=== PATIENT | male | born 1955 | race African-American/Black ===

== ENCOUNTER 2018-03-26 16:10 | Observation (INO) | payer BC ==
[2018-03-26] MEDS ORDERED: HEPARIN SODIUM,PORCINE 5,000 UNIT/ML 1 ML VIAL IV ONE (16:28)
[2018-03-26] MEDS ORDERED: HEPARIN SODIUM,PORCINE 5,000 UNIT/ML 1 ML VIAL IV PRN (16:28)
[2018-03-26] MEDS ORDERED: NITROGLYCERIN SL TABS 0.4 MG TAB SUBLINGUAL PRN (16:28)
--- NOTE | 2018-03-26 16:28 | ED ---
General Adult HPI - General Stated complaint: Cardiac issues Time Seen by Provider: 03/26/18 16:13 Source: patient, RN notes reviewed, old records reviewed (Including chart from [facility].) Mode of arrival: EMS Limitations: no limitations - History of Present Illness Initial comments: Patient is a pleasant 62-year-old male presenting to the emergency Department as transfer from [facility]. Patient states he had chest discomfort while at work earlier today. Patient states discomfort was moderate however now has resolved. Patient was sweaty during symptoms may be somewhat nauseated. No dyspnea. Patient has had rash intermittently over the past week or 2. Patient did see his doctor and was given medication for this which seemed to make it improved. This did include steroids. Patient states rash is diffuse and pruritic. No history of similar chest discomfort previously. Patient is currently symptom free except for itching. Patient did receive aspirin at [facility]. Review of Systems ROS Statement: Those systems with pertinent positive or pertinent negative responses have been documented in the HPI. ROS Other: All systems not noted in ROS Statement are negative. Constitutional: Denies: fever, chills Eyes: Denies: eye pain ENT: Denies: ear pain Respiratory: Denies: cough, dyspnea Cardiovascular: Reports: chest pain Endocrine: Denies: fatigue Gastrointestinal: Denies: abdominal pain Genitourinary: Denies: dysuria Musculoskeletal: Denies: back pain Skin: Reports: rash Neurological: Denies: weakness Past Medical History Past Medical History: Hypertension Past Surgical History: Cholecystectomy Smoking Status: Never smoker General Exam Limitations: no limitations General appearance: alert, in no apparent distress Head exam: Present: atraumatic, normocephalic Eye exam: Present: normal appearance, PERRL Neck exam: Present: normal inspection Respiratory exam: Present: normal lung sounds bilaterally. Absent: chest wall tenderness Cardiovascular Exam: Present: regular rate, normal rhythm Expanded Peripheral pulses: 2+: Radial (R), Radial (L), Dorsalis Pedis (R), Dorsalis Pedis (L) GI/Abdominal exam: Present: soft. Absent: tenderness Extremities exam: Present: normal inspection. Absent: pedal edema, calf tenderness Back exam: Present: normal inspection Neurological exam: Present: alert Psychiatric exam: Present: normal affect, normal mood Skin exam: Present: urticaria (Diffuse urticarial rash) Course Vital Signs 03/26/18 16:13 Temperature 98.3 F Pulse Rate 90 Respiratory 18 Rate Blood Pressure 166/96 O2 Sat by Pulse 99 Oximetry EKG Findings - EKG Comments: EKG Findings:: Normal sinus rhythm 89. RI 128. QRS 70. QT 362. QTC 440. Normal axis. Atrial enlargement. Biphasic T waves in V5 and inferior. T-wave inversion in V6. Medical Decision Making - Medical Decision Making Case was discussed with Dr. Harding, who will admit his patient. He would like cardiology consult. Patient was updated. - Radiology Data Radiology results: report reviewed (Reports from computed tomography scan chest x-ray reviewed from [facility]) Disposition Clinical Impression: Chest pain Disposition: ADMITTED IP TO THIS HOSP Is patient prescribed a controlled substance at d/c from ED?: No Referrals: Zuhair Harding MD [Primary Care Provider] - 1-2 days Decision Time: 16:30
[2018-03-26] MEDS: diphenhydrAMINE 25 MG CAP PO PRN ×2 (16:34→19:49)
[2018-03-26] MEDS ORDERED: diphenhydrAMINE 25 MG CAP PO STA (17:27)
[2018-03-26] MEDS: HEPARIN SOD,PORK IN 0.45% NACL 25,000 UNIT in 0.45% NACL 1 500ML.BAG IV SCH (18:07)
[2018-03-26 18:14] LABS: Creatine Kinase MB 0.8 ng/mL (0.0-2.4); Troponin I 0.021 ng/mL (0.000-0.034)
[2018-03-26] MEDS: NITROGLYCERIN OINT 1 INCH/GM PACKET TOPICAL SCH (19:50)
[2018-03-26] MEDS ORDERED: DEXAMETHASONE SOD PHOSPHATE 10 MG/ML 1 ML VIAL IV STA (21:33)
[2018-03-26] MEDS ORDERED: HYDROCORTISONE 1% CREAM 30 GM TUBE TOPICAL PRN (21:33)
[2018-03-26] MEDS: LORATADINE 10 MG TAB PO SCH (22:22)
[2018-03-26] MEDS: NIFEdipine XL 30 MG TAB.ER.24 PO SCH (22:22)
[2018-03-27] MEDS: NITROGLYCERIN OINT 1 INCH/GM PACKET TOPICAL SCH ×4 (00:06→22:35)
[2018-03-27 00:28] LABS: Creatine Kinase 50 U/L (55-170)
[2018-03-27 00:41] LABS: Troponin I <0.012 ng/mL (0.000-0.034)
[2018-03-27 08:13] LABS: Mean Platelet Volume 8.5; Platelet Count 148 k/uL (150-450)
[2018-03-27] MEDS: NIFEdipine XL 30 MG TAB.ER.24 PO SCH (08:59)
[2018-03-27] MEDS: ASPIRIN 325 MG TAB PO SCH (08:59)
[2018-03-27] MEDS: FAMOTIDINE 20 MG TAB PO SCH ×2 (08:59→21:54)
[2018-03-27] MEDS: LORATADINE 10 MG TAB PO SCH (08:59)
[2018-03-27] MEDS ORDERED: SPIRONOLACTONE 25 MG TAB PO SCH (09:00)
[2018-03-27] MEDS ORDERED: TRIAMTERENE-HCTZ 37.5-25MG 1 EACH CAP PO SCH (09:00)
[2018-03-27 09:08] LABS: Cholesterol 114 mg/dL (<200); HDL Cholesterol 37 mg/dL (40-60); LDL Cholesterol,Calculated 52 mg/dL (0-99); Triglycerides 125 mg/dL (<150)
[2018-03-27] MEDS ORDERED: SODIUM CHLORIDE 0.9% 1,000 ML in EMPTY BAG 1 BAG IV ONE (10:23)
[2018-03-27] MEDS ORDERED: ATORVASTATIN 80 MG TAB PO STA (10:24)
--- NOTE | 2018-03-27 11:36 | P.CRDCN ---
History of Present Illness History of present illness: Mr. Beasley is a pleasant 62-year-old male past medical history significant for hypertension and heavy tobacco use history. He smoke for 47 years and quit last March. He denies history of coronary artery disease, dyslipidemia or diabetes mellitus. We have been asked to see him in consultation for chest pain. He states Saturday evening he noticed a rash on his torso. For this reason he missed work Saturday and Saturday. He returned to work Saturday thinking he was feeling better. Upon returning to work he felt very tired and fatigued. 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 He decided to go sit down in his supervisors office for a few minutes to rest. Once he sat down he started feeling a tight heavy sensation in the mid-sternal region with radiation to the left shoulder. At the time he became very diaphoretic and nauseated. He denies dizziness, palpitations, nausea or vomiting. The pain persisted for approximately 30 minutes. He initially presented to [facility] and was subsequently transferred here. EKG on arrival here indicates sinus mechanism with lateral T-wave inversions as well as minimal ST depression inferiorly. 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 Laboratory data reviewed, cardiac enzymes negative x2 at [facility] and negative x2 here, LDL 52, HDL 37. WBC 18.56, hgb 17.3, creatinine 2.06, magnesium 1.8, potassium 4.2. Current cardiac medications include nifedipine 30 mg daily, Aldactone 50 mg daily and Dyazide 37.5/25 mg daily. At the time of my exam: CONSTITUTIONAL: Denies fever. Denies chills. EYES: Denies blurred vision. Denies vision changes. Denies eye pain. EARS, NOSE, MOUTH & THROAT: Denies headache. Denies sore throat. Denies ear pain. CARDIOVASCULAR: Denies chest pain. Denies shortness of breath. Denies orthopnea. Denies PND. Denies palpitations. RESPIRATORY: Denies cough. GASTROINTESTINAL: Denies abdominal pain. Denies diarrhea. Denies constipation. Denies nausea. Denies vomiting. MUSCULOSKELETAL: Denies myalgias. INTEGUMENTARY: Denies pruitis. Denies rash. NEUROLOGIC: Denies numbness. Denies tingling. Denies weakness. PSYCHIATRIC: Denies anxiety. Denies depression. ENDOCRINE: Denies fatigue. Denies weight change. Denies polydipsia. Denies polyurina. GENITOURINARY: Denies burning, hematuria or urgency with micturation. HEMATOLOGIC: Denies history of anemia. Denies bleeding. Blood pressure 148/97 heart rate 87 afebrile maintaining oxygen saturation on room air GENERAL: This is a 62-year-old -[place] male in no apparent distress at the time of my examination. HEENT: Head is atraumatic, normocephalic. Pupils are equal, round. Sclerae anicteric. Conjunctivae are clear. Mucous membranes of the mouth are moist. Neck is supple. There is no jugular venous distention. No carotid bruit is heard. LUNGS: Clear to auscultation no wheezes, rales or rhonchi. No chest wall tenderness is noted on palpation or with deep breathing. HEART: Regular rate and rhythm without murmurs, rubs or gallops. S1 and S2 heard. ABDOMEN: Soft, nontender. Bowel sounds are heard. No organomegaly noted. EXTREMITIES: No evidence of peripheral edema and no calf tenderness noted. VASCULAR: Radial and dorsalis pedis pulses palpated, no evidence of clubbing. NEUROLOGIC: Patient is awake, alert and oriented x3. ASSESSMENT Precordial chest pain with EKG abnormalities. Hypertension History of nicotine dependence, quit 2017 Elevated creatinine, most recently was normal at 1.2 04/2017. PLAN We recommend proceeding with cardiac catheterization to further assess the coronary arteries. I have discussed the risks, benefits and alternative therapies for the above-mentioned procedure and for both sedation/analgesia as well as necessary blood product administration, if indicated, as they pertain to this patient. The patient has indicated understanding and acceptance of the risks and procedures discussed. Questions have been answered appropriately and he is agreeable to move forward with above stated procedure. He has been boarded for tomorrow. Feed the patient today and he will be NPO after midnight tonight. Hydrate him with 0.9% normal saline at 1mg/kg/hr. Hold aldactone and dyazide. Increase nifedipine to 60 mg daily. Add on lopressor 25 mg BID. Repeat CBC and BMP in the morning. Further recommendations to follow based on clinical course. Thank you kindly for this consultation. Nurse Practitioner note has been reviewed, I agree with a documented findings and plan of care. Patient was seen and examined. Past Medical History Past Medical History: Hypertension Additional Past Medical History / Comment(s): uti, History of Any Multi-Drug Resistant Organisms: None Reported Past Surgical History: Cholecystectomy Past Anesthesia/Blood Transfusion Reactions: No Reported Reaction Additional Past Anesthesia/Blood Transfusion Reaction / Comment(s): pt stated he has never received blood Smoking Status: Former smoker - Past Family History Mother Family Medical History: Cancer, CVA/TIA Additional Family Medical History / Comment(s): breast cancer Father Family Medical History: Dialysis, Renal Disease Medications and Allergies Home Medications Medication Instructions Recorded Confirmed Type Ciprofloxacin HCl [Cipro] 500 mg PO Q12HR 03/26/18 03/26/18 History Famotidine [Pepcid] 20 mg PO BID 03/26/18 03/26/18 History Hydrocortisone Cream 1 applic TOPICAL BID PRN 03/26/18 03/26/18 History [Hydrocortisone 2.5% Cream] Loratadine [Claritin] 10 mg PO DAILY 03/26/18 03/26/18 History NIFEdipine [NIFEdipine ER] 30 mg PO DAILY 03/26/18 03/26/18 History Spironolactone 50 mg PO DAILY 03/26/18 03/26/18 History Triamterene-Hctz 37.5-25Mg 1 cap PO DAILY 03/26/18 03/26/18 History [Dyazide 37.5-25 Capsule] diphenhydrAMINE [Benadryl] 25 mg PO Q8H PRN 03/26/18 03/26/18 History Allergies Allergy/AdvReac Type Severity Reaction Status Date / Time No Known Allergies Allergy Unverified 03/26/18 16:36 Physical Exam Vitals: Vital Signs Temp Pulse Pulse Resp BP BP Pulse Ox 03/27/18 07:25 98.3 F 87 18 148/97 96 03/27/18 04:00 98.3 F 97 16 137/90 98 03/27/18 00:00 97.8 F 94 18 137/89 98 03/26/18 20:46 166/91 03/26/18 20:00 18 03/26/18 19:10 97.8 F 94 18 172/110 96 03/26/18 18:25 96 20 140/119 97 03/26/18 16:13 98.3 F 90 18 166/96 99 Intake and Output 03/26/18 03/27/18 03/27/18 22:59 06:59 14:59 Intake Total 129.602 Balance 129.602 Intake: Intake, IV Titration 129.602 Amount Heparin Sod,Pork in 0.45% 129.602 NaCl 25,000 unit In 0.45 % NaCl 1 500ml.bag @ 10. 35 UNITS/KG/HR 19.99 mls/ hr IV .Q24H [facility] Rx#: [id number] Other: Voiding Method Toilet Toilet # Voids 2 Weight 94 kg Results 03/27/18 06:35 Cardiac Enzymes 03/26/18 03/26/18 Range/Units 17:11 23:52 CK-MB (CK-2) 0.8 1.0 (0.0-2.4) ng/mL Troponin I 0.021 <0.012 (0.000-0.034) ng/mL Coagulation 03/26/18 03/26/18 03/27/18 Range/Units 17:31 23:52 06:35 APTT 24.3 36.6 H 42.3 H (22.0-30.0) sec Lipids 03/26/18 Range/Units 23:52 Triglycerides 125 (<150) mg/dL Cholesterol 114 (<200) mg/dL HDL Cholesterol 37 L (40-60) mg/dL CBC 03/27/18 Range/Units 06:35 Plt Count 148 L (150-450) k/uL Current Medications Generic Name Dose Route Start Last Admin Trade Name Freq PRN Reason Stop Dose Admin Aspirin 325 mg 03/27/18 09:00 03/27/18 08:59 Aspirin PO 325 mg DAILY [facility] Administration Diphenhydramine HCl 25 mg 03/26/18 16:21 03/26/18 19:49 Benadryl PO 25 mg Q6HR PRN Administration Allergy Symptoms Famotidine 20 mg 03/27/18 09:00 03/27/18 08:59 Pepcid PO 20 mg BID [facility] Administration Heparin Sodium (Porcine) 0 unit 03/26/18 16:28 Heparin IV Q6HR PRN Low PTT Protocol Hydrocortisone 1 applic 03/26/18 21:33 Hydrocortisone 1% Cream TOPICAL BID PRN Itching Heparin Sodium/Sodium Chloride 500 mls @ 19.99 mls/hr 03/26/18 16:30 00:36 25,000 unit/ Sodium Chloride IV 13.3 units/kg/hr .Q24H [facility] 25.7 mls/hr Titration Protocol 10.35 UNITS/KG/HR Sodium Chloride 1,000 ml/ IV 1,000 mls @ 94 mls/hr 03/27/18 10:23 Solution IV 03/27/18 21:01 .[id number] ONE 1 ML/KG/HR Loratadine 10 mg 03/26/18 21:45 03/27/18 08:59 Claritin PO 10 mg DAILY [facility] Administration Nifedipine 30 mg 03/26/18 21:45 03/27/18 08:59 Procardia Xl PO 30 mg DAILY [facility] Administration Nitroglycerin 1 inch 03/26/18 18:00 03/27/18 05:36 Nitro-Bid Oint TOPICAL Not Given Q6HR [facility] Nitroglycerin 0.4 mg 03/26/18 16:28 Nitrostat SUBLINGUAL Q5M PRN Chest Pain Sodium Chloride 10 ml 03/26/18 21:00 03/27/18 09:00 Saline Flush IV 10 ml BID [facility] Administration Spironolactone 50 mg 03/27/18 09:00 03/27/18 09:00 Aldactone PO 50 mg DAILY [facility] Administration Triamterene/HCTZ 1 each 03/27/18 09:00 03/27/18 09:00 Dyazide PO 1 each DAILY [facility] Administration Intake and Output 03/26/18 03/27/18 03/27/18 22:59 06:59 14:59 Intake Total 129.602 Balance 129.602 Intake: Intake, IV Titration 129.602 Amount Heparin Sod,Pork in 0.45% 129.602 NaCl 25,000 unit In 0.45 % NaCl 1 500ml.bag @ 10. 35 UNITS/KG/HR 19.99 mls/ hr IV .Q24H [facility] Rx#: [id number] Other: Voiding Method Toilet Toilet # Voids 2 Weight 94 kg 03/27/18 06:35
--- NOTE | 2018-03-27 11:57 | ECHOF ---
Referral Reason:Chest pain MEASUREMENTS -------- HEIGHT: 190.5 cm WEIGHT: 93.9 kg BP: 137/90 IVSd: 1.9 cm (0.6 - 1.1) LVIDd: 3.4 cm (3.9 - 5.3) LVPWd: 1.9 cm (0.6 - 1.1) IVSs: 2.2 cm LVIDs: 2.7 cm LVPWs: 2.2 cm LAESV Index (A-L): 14.68 ml/m Ao Diam: 3.9 cm (2.0 - 3.7) AV Cusp: 2.1 cm (1.5 - 2.6) LA Diam: 2.7 cm (2.7 - 3.8) EPSS: 0.7 cm MV E Cory: 0.49 m/s MV DecT: 345 ms MV A Cory: 0.85 m/s MV E/A Ratio: 0.57 RAP: 5.00 mmHg RVSP: 12.70 mmHg MV EF SLOPE: 128.14 mm/s (70 - 150) MV EXCURSION: 1.36 cm (> 18.000) FINDINGS -------- Sinus rhythm. This was a technically adequate study. The left ventricular size is normal. There is severe concentric left ventricular hypertrophy. Ove rall left ventricular systolic function is low-normal with, an EF between 50 - 55 %. The right ventricle is normal in size and function. Normal LA size by volume 22+/-6 ml/m2. RA appears enlarged. Aortic valve is trileaflet and is mildly thickened. Trace to mild aortic regurgitation. There is no evidence of aortic stenosis. The mitral valve leaflets are mildly thickened. There is trace to mild mitral regurgitation. Trace tricuspid regurgitation present. Right ventricular systolic pressure is normal at < 35 mmHg. There is no evidence of pulmonary hypertension. The pulmonic valve was not well visualized. The aortic root is mildy dilated, up to 3.8 cm. Normal inferior vena cava with normal inspiratory collapse consistent with estimated right atrial pre ssure of 5 mmHg. There is no pericardial effusion. CONCLUSIONS -------- 1. Sinus rhythm. 2. This was a technically adequate study. 3. The left ventricular size is normal. 4. There is severe concentric left ventricular hypertrophy. 5. Overall left ventricular systolic function is low-normal with, an EF between 50 - 55 %. 6. Normal LA size by volume 22+/-6 ml/m2. 7. RA appears enlarged. 8. Aortic valve is trileaflet and is mildly thickened. 9. Trace to mild aortic regurgitation. 10. The mitral valve leaflets are mildly thickened. 11. There is trace to mild mitral regurgitation. 12. Trace tricuspid regurgitation present. 13. Right ventricular systolic pressure is normal at < 35 mmHg. 14. There is no evidence of pulmonary hypertension. 15. The pulmonic valve was not well visualized. 16. The aortic root is mildy dilated, up to 3.8 cm. 17. There is no pericardial effusion. [employer] MANAGER: Ismael Brown RDCS
[2018-03-27] MEDS: diphenhydrAMINE 25 MG CAP PO PRN ×2 (12:04→18:42)
[2018-03-27] MEDS ORDERED: NIFEdipine XL 30 MG TAB.ER.24 PO STA (13:06)
--- NOTE | 2018-03-27 18:42 | HP ---
HISTORY AND PHYSICAL CHIEF COMPLAINT: Chest pain and diaphoresis. HISTORY OF PRESENT ILLNESS: This is another admission for this 62-year-old -[place] male. He started to have dysesthesias in his arms and then became woozy and lightheaded. He became very diaphoretic and he had slight chest discomfort. He came to the emergency room, where he was admitted with unstable angina. REVIEW OF SYSTEMS: Review of systems is otherwise normal. He has had no vomiting, syncope, orthopnea, etc. Past medical history, family history, and personal and social histories reveal that he is on: 1. Loratadine. 2. Famotidine. 3. Dyazide. 4. Carvedilol. 5. Nifedical XL 60 mg once a day. 6. Spironolactone. He has a history of hypertension and alcoholism. The remainder of his history is unremarkable. He is a recovering alcoholic. He no longer smokes. PHYSICAL EXAMINATION: Blood pressure is 170/78, pulse 80, respirations 16. He is afebrile. In general he appeared to be well developed, well nourished, in no acute distress. Skin color is normal. Skin is warm and dry. Lymph nodes are not enlarged. Head, ears, eyes, nose, mouth and throat were normal. Neck veins were not distended. Thyroid was not enlarged. Chest was clear. Cardiac exam was normal. Abdomen is soft, nontender. Extremities are normal. IMPRESSION: Unstable angina pectoris. PLAN: 1. Bed rest. 2. IV fluids. 3. Serial EKGs and enzymes. 4. Cardiology consult. MMODL / IJN: [id number] /
[2018-03-27] MEDS: METOPROLOL TARTRATE 25 MG TAB PO SCH (21:54)
[2018-03-28] MEDS: NITROGLYCERIN OINT 1 INCH/GM PACKET TOPICAL SCH ×5 (00:25→22:38)
[2018-03-28] MEDS: HEPARIN SOD,PORK IN 0.45% NACL 25,000 UNIT in 0.45% NACL 1 500ML.BAG IV SCH ×2 (00:28→18:34)
[2018-03-28] MEDS: METOPROLOL TARTRATE 25 MG TAB PO SCH ×2 (06:24→19:56)
[2018-03-28] MEDS: ASPIRIN 325 MG TAB PO SCH (06:24)
[2018-03-28 07:53] LABS: HCT 49.3 % (39.0-53.0); HGB 15.7 gm/dL (13.0-17.5); Hypochromasia Slight; MCH 22.4 pg (25.0-35.0); MCHC 31.8 g/dL (31.0-37.0); MCV 70.3 fL (80.0-100.0); Mean Platelet Volume 8.9; Microcytosis Moderate; Platelet Count 155 k/uL (150-450); RDW 15.9 % (11.5-15.5); WBC 15.7 k/uL (3.8-10.6)
[2018-03-28 07:54] LABS: RBC 7.01 m/uL (4.30-5.90)
[2018-03-28 07:58] LABS: Calcium 9.1 mg/dL (8.4-10.2)
[2018-03-28 08:04] LABS: Potassium 5.4 mmol/L (3.5-5.1)
[2018-03-28] MEDS: diphenhydrAMINE 25 MG CAP PO PRN ×2 (11:03→20:54)
[2018-03-28] MEDS ORDERED: LIDOCAINE 1% INJ 10MG/ML (20 ML MDV) ONE (11:33)
[2018-03-28] MEDS ORDERED: MIDAZOLAM 2 MG/2 ML VIAL ONE ×2 (11:36→12:13)
[2018-03-28] MEDS ORDERED: HEPARIN SODIUM 1,000 UN/ML (10ML VL) ONE ×2 (11:36→12:51)
[2018-03-28] MEDS ORDERED: VERAPAMIL 2.5 MG/ML 2 ML AMP ONE (11:37)
[2018-03-28] MEDS: MIDAZOLAM 2 MG/2 ML VIAL IV ONE ×2 (11:53→11:58)
[2018-03-28] MEDS ORDERED: IV FLUID CONTINUATION 1,000 ML IV ONE (11:54)
[2018-03-28] MEDS ORDERED: LIDOCAINE 2% (PF) 20 MG/ML 2 ML VIAL SQ ONE (11:56)
[2018-03-28] MEDS ORDERED: VERAPAMIL SYRINGE (5 MG/10 ML) INTRAARTER ONE (11:58)
[2018-03-28] MEDS ORDERED: CLOPIDOGREL 75 MG TAB ONE (12:10)
[2018-03-28] MEDS ORDERED: CLOPIDOGREL 75 MG TAB PO ONE (12:15)
[2018-03-28] MEDS ORDERED: MIDAZOLAM 2 MG/2 ML VIAL IV ONE (12:17)
[2018-03-28] MEDS: NITROGLYCERIN 1000MCG/10ML SYRINGE INTRACORON ONE ×3 (12:20→12:40)
[2018-03-28] MEDS ORDERED: niCARdipine Syringe (1,000 mcg/10 mL) INTRACORON ONE (12:27)
[2018-03-28] MEDS ORDERED: IOPAMIDOL-370 125ML BTL INJ ONE (12:29)
[2018-03-28] MEDS ORDERED: IOPAMIDOL-370 100ML BTL INJ ONE (12:43)
[2018-03-28] MEDS ORDERED: MAG HYDROX/AL HYDROX/SIMETH 30 ML CUP PO PRN (12:51)
[2018-03-28] MEDS ORDERED: ATROPINE SULFATE 0.1 MG/ML 10ML SYRINGE IV PRN (12:51)
[2018-03-28] MEDS ORDERED: RX INFO: IV CONTRAST WAS GIVEN 1 EACH MISC MISCELLANE PRN (12:51)
[2018-03-28] MEDS ORDERED: NITROGLYCERIN SL TABS 0.4 MG TAB SUBLINGUAL PRN (12:51)
[2018-03-28] MEDS ORDERED: HEPARIN SODIUM 1,000 UN/ML (10ML VL) IV ONE (12:52)
[2018-03-28] MEDS ORDERED: SODIUM CHLORIDE 0.9% 1,000 ML IV SCH (13:00)
--- NOTE | 2018-03-28 13:13 | LTR ---
DATE OF SERVICE: 03/28/2018 RE: Jesus Beasley Dear Dr. Harding; Mr. Jesus Beasley underwent a heart catheterization and he underwent after that successful stenting of the PDA branch of the RCA and OM2 of left circumflex with good angiographic results and without any complication. Both arteries were found to have critical disease. The procedure was completed without any complication. I want to thank you for allowing us to participate in his care and please do not hesitate to call if you have any question or concern. Sincerely, MD COLTON Elkins / TYRONEN: [id number] /
[2018-03-28] MEDS ORDERED: hydrALAZINE HCL 20 MG/ML 1 ML VIAL IVP STA (13:49)
[2018-03-28] MEDS ORDERED: ENALAPRILAT 1.25 MG/ML 1 ML VIAL IVP STA (13:49)
--- NOTE | 2018-03-28 14:55 | CC ---
CARDIAC CATHETERIZATION REPORT DATE OF SERVICE: 03/28/2018 PERFORMING PHYSICIAN: Chris Pandya MD, Velvet Weaver. PROCEDURE PERFORMED: 1. Selective right and left coronary angiogram. 2. Left heart catheterization. 3. Successful stenting of the PDA branch of the RCA using 2.5 x 18 mm Xience drug- eluting stent with good angiographic results. 4. Successful stenting of the first obtuse marginal branch of the left circumflex using 2.0 x 15 mm [place] drug-eluting stent with good angiographic results. INDICATION: This is a pleasant 62-year-old gentleman with a past medical history significant for hypertension and history of smoking, who was admitted to the hospital with chest discomfort concerning for angina. The EKG was also concerning for angina and showing lateral T-wave inversion and a minimal ST-segment depression as well. The patient was initially admitted to [facility] and then he was transferred to [facility] for further evaluation. APPROACH: Right radial artery. COMPLICATION: None. LEVEL OF SEDATION: Moderate sedation length of 50 minutes. PROCEDURE DESCRIPTION: After obtaining an informed consent, the patient was brought to the cardiac golf course laborer. The right radial artery was cannulated using micropuncture technique, the micropuncture wire passed easily, then I placed a 6-Cub[place] sheath in the right radial artery. After that, I did selective right and left coronary angiogram using JL4 and JR3.5 catheters. Left heart catheterization was performed using 6-[place]ub[place] pigtail catheter. Then I did perform angioplasty on the RCA and left circumflex. Please see a separate paragraph for that. SELECTIVE CORONARY ANGIOGRAM: 1. The right coronary artery is a large caliber vessel and it is a dominant vessel. The proximal RCA has mild disease only. The mid RCA has mild disease only as well. The RCA distally appeared to be angiographically normal and bifurcates into PDA and PLV branches. The PLV branch is angiographically normal and the PLV, PDA branch has a tight lesion in the midportion appeared to be in the range of 90%. 2. The left main is angiographically normal. It bifurcates into left circumflex and left anterior descending artery. 3. The left circumflex is a large caliber vessel. It is a nondominant vessel. The proximal circumflex appeared to be normal and gives rise into the first OM branch which appeared to have a tight lesion in the proximal portion, appeared to be in the range of 90%. The mid circumflex appeared to have a lesion in the range of 50%. This is by the bifurcation of the second OM branch which appeared to be angiographically normal. 4. The LAD, the proximal LAD appeared to be angiographically normal. The mid LAD is normal and gives rise into a large diagonal branch which appeared to be angiographically normal as well. HEMODYNAMICS: The left ventricular end-diastolic pressure was 12 mmHg and no significant gradient was seen across the aortic valve. PCI OF THE RCA: Anticoagulation was initiated using Angiomax. Subsequently, I took a JR4 guide and RCA was engaged. A run-through wire was used to wire the right coronary artery. After that, I did PTCA ballooning using 2.0 x 12 mm balloon before I deployed 2.5 x 18 mm Xience drug-eluting stent where the stent was positioned under fluoroscopy guidance and deployed under its nominal pressure with the following angiogram showing good angiographic results. PCI OF THE LEFT CIRCUMFLEX: I continued anticoagulation using heparin. After that, I did engage the left main using JL3.5 guiding catheter. I did wire the OM2 using the same run-through wire I used for the RCA. I did after that balloon angioplasty using 2.0 x 12 mm balloon before I deployed 2.0 x 15 mm [place] drug-eluting stent where the stent was positioned under fluoroscopy guidance and under 16 atmospheres. The following angiogram showed good angiographic results and the procedure was completed without any complication. CONCLUSION: 1. Severe 2-vessel coronary artery disease involving the PDA branch of the RCA and the first obtuse marginal branch of the left circumflex. 2. Successful stenting of the PDA branch using 2.5 x 18 mm Xience drug-eluting stent with an excellent angiographic results. 3. Successful stenting of OM2 of the left circumflex using 2.0 x 15 mm [place] drug- eluting stent with an excellent angiographic results. 4. Intermediate lesion involving the mid left circumflex with residual mild-to- moderate disease involving the mid left circumflex, appeared to be in the range of 40% to 50%. POSTPROCEDURE MANAGEMENT: Maximize medical treatment and follow up with the patient. MMODL / IJN: [id number] /
[2018-03-28] MEDS: LORATADINE 10 MG TAB PO SCH (18:33)
[2018-03-28] MEDS: FAMOTIDINE 20 MG TAB PO SCH ×2 (18:33→19:56)
[2018-03-28] MEDS: ATORVASTATIN 80 MG TAB PO SCH (19:56)
[2018-03-28] MEDS: ZOLPIDEM 5 MG TAB PO PRN (21:06)
[2018-03-28 21:25] LABS: Appearance,Urine Cloudy (Clear); Bacteria,Urine Rare /hpf; Bilirubin,Urine Negative (Negative); Blood,Urine Negative (Negative); Color,Urine Light Yellow; Glucose,Urine (UA) Negative (Negative); Ketones,Urine Negative (Negative); Leukocyte Esterase,Urine Large (Negative); Mucus,Urine Rare /hpf; Nitrite,Urine Positive (Negative); Protein,Urine Negative (Negative); RBC,Urine 1 /hpf (0-5); Squamous Epithelial Cell,Urine <1 /hpf (0-4); Urobilinogen,Urine <2.0 mg/dL (<2.0); WBC,Urine 32 /hpf (0-5)
[2018-03-28] MEDS: LEVOFLOXACIN 500 MG TAB PO SCH (22:37)
[2018-03-29] MEDS: NITROGLYCERIN OINT 1 INCH/GM PACKET TOPICAL SCH ×4 (05:53→23:50)
[2018-03-29] MEDS ORDERED: DEXAMETHASONE SOD PHOSPHATE 10 MG/ML 1 ML VIAL IV STA (08:57)
[2018-03-29] MEDS: LORATADINE 10 MG TAB PO SCH (09:12)
[2018-03-29] MEDS: METOPROLOL TARTRATE 25 MG TAB PO SCH ×2 (09:12→19:54)
[2018-03-29] MEDS: FAMOTIDINE 20 MG TAB PO SCH ×2 (09:12→19:54)
[2018-03-29] MEDS: ASPIRIN 325 MG TAB PO SCH (09:12)
[2018-03-29 09:24] LABS: Basophils % (A) 0 %; Eosinophils # (A) 4.2 k/uL (0-0.7); Eosinophils % (A) 29 %; HCT 51.8 % (39.0-53.0); HGB 16.2 gm/dL (13.0-17.5); Hypochromasia Moderate; Lymphocytes # (A) 2.4 k/uL (1.0-4.8); Lymphocytes % (A) 17 %; MCH 22.3 pg (25.0-35.0); MCHC 31.2 g/dL (31.0-37.0); MCV 71.6 fL (80.0-100.0); Mean Platelet Volume 6.8; Microcytosis Moderate; Monocytes # (A) 0.6 k/uL (0-1.0); Monocytes % (A) 4 %; Neutrophils # (A) 6.9 k/uL (1.3-7.7); Neutrophils % (A) 48 %; RDW 15.9 % (11.5-15.5); WBC 14.4 k/uL (3.8-10.6)
[2018-03-29] MEDS: diphenhydrAMINE 50 MG CAP PO PRN ×3 (09:29→19:55)
[2018-03-29 10:24] LABS: Platelet Count 177 k/uL (150-450)
[2018-03-29] MEDS: BETAMETHASONE DIPROPIONATE 0.05% OINTMENT 45 GM TUBE TOPICAL SCH ×2 (11:58→19:56)
[2018-03-29] MEDS: DEXAMETHASONE SOD PHOSPHATE 4 MG/ML 1 ML VIAL IV SCH ×3 (11:58→23:52)
[2018-03-29 12:46] VITALS: BMI 25.9
--- NOTE | 2018-03-29 14:19 | P.PN ---
Subjective Mr. Beasley is a pleasant 62-year-old male past medical history significant for hypertension and heavy tobacco use history. He smoke for 47 years and quit last March. He denies history of coronary artery disease, dyslipidemia or diabetes mellitus. We have been asked to see him in consultation for chest pain. He states Saturday evening he noticed a rash on his torso. For this reason he missed work Saturday and Saturday. He returned to work Saturday thinking he was feeling better. Upon returning to work he felt very tired and fatigued. 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 He decided to go sit down in his supervisors office for a few minutes to rest. Once he sat down he started feeling a tight heavy sensation in the mid-sternal region with radiation to the left shoulder. At the time he became very diaphoretic and nauseated. He denies dizziness, palpitations, nausea or vomiting. The pain persisted for approximately 30 minutes. He initially presented to [facility] and was subsequently transferred here. In follow-up today he is seen and examined resting comfortably in bed. He underwent cardiac catheterization yesterday which revealed a tight lesion in the proximal portion of the OM as well as a lesion in the range of about 50% of the mid circumflex. He also had disease in the midportion of the PDA branch of the RCA. LAD and left main was angiographically normal. He underwent successful stenting of the first OM as well as successful stenting of the PE branch of the RCA. Blood pressure 118/56 heart rate 79 afebrile maintaining oxygen saturation on room air. Laboratory data reviewed, WBC 14.4, hemoglobin 16.2, platelets 177, creatinine 1.21. He continues to complain of rash and itchiness to the thoracic region. He denies symptoms of chest pain, shortness of breath, dizziness or palpitations. Telemetry tracings been unremarkable. GENERAL: This is a 62-year-old -[place] male in no apparent distress at the time of my examination. Urticaria noted on the thorax. LUNGS: Clear to auscultation no wheezes, rales or rhonchi. No chest wall tenderness is noted on palpation or with deep breathing. HEART: Regular rate and rhythm without murmurs, rubs or gallops. S1 and S2 heard. EXTREMITIES: No evidence of peripheral edema and no calf tenderness noted. Right wrist soft, clean, dry and intact with no evidence of hematoma, pulses strong and intact. ASSESSMENT Precordial chest pain with EKG abnormalities. Coronary artery disease status post angioplasty Hypertension History of nicotine dependence, quit 2017 Elevated creatinine, most recently was normal at 1.2 04/2017. PLAN He has been initiated on dual antiplatelet therapy as well as atorvastatin 80 mg daily. Prescriptions have been sent to his pharmacy. Stable from a cardiac perspective. Consider consultation by dermatology for ongoing rash prior to admission for one week with no known cause. Follow up with Dr. Pandya in 1 week. Nurse Practitioner note has been reviewed, I agree with a documented findings and plan of care. Patient was seen and examined. Objective - Vital Signs Vital signs: Vital Signs Temp 97.9 F 03/29/18 04:00 Pulse 79 03/29/18 04:00 Resp 18 03/29/18 04:00 BP 118/56 03/29/18 04:00 Pulse Ox 98 03/29/18 04:00 Intake & Output 03/28/18 03/29/18 03/29/18 18:59 06:59 18:59 Intake Total 625 680 702 Output Total 1250 750 600 Balance -625 -70 102 Weight 94 kg 94 kg Intake: IV 325 200 Sodium Chloride 0.9% 1, 200 200 000 ml @ 100 mls/hr IV . Q10H IZABELA Rx#:[id number] Oral 300 480 702 Output: Urine 1250 750 600 Other: Voiding Method Toilet Toilet # Voids 0 - Labs CBC & Chem 7: 03/29/18 05:33 03/29/18 05:33 Labs: Abnormal Lab Results - Last 24 Hours (Table) 03/28/18 03/29/18 Range/Units 21:00 05:33 WBC 14.4 H (3.8-10.6) k/uL RBC 7.30 H (4.30-5.90) m/uL MCV 71.6 L (80.0-100.0) fL MCH 22.3 L (25.0-35.0) pg RDW 15.9 H (11.5-15.5) % Eosinophils # 4.2 H (0-0.7) k/uL Ur Leukocyte Esterase Large H (Negative) Urine WBC 32 H (0-5) /hpf Urine Bacteria Rare H (None) /hpf Urine Mucus Rare H (None) /hpf
--- NOTE | 2018-03-29 15:22 | PN ---
PROGRESS NOTE DATE OF SERVICE: 03/29/2018 CHIEF COMPLAINT: Status post cardiac cath with stenting. HISTORY OF PRESENT ILLNESS: This gentleman is not having any chest pain, but he is having extensive problems with the urticarial type rash which is spreading and giving him a great deal of difficulty due to the pruritus. PHYSICAL EXAMINATION: Chest is clear. Cardiac exam is normal. He has more extensive maculopapular dermatitis on the neck, trunk, arms, etc. IMPRESSION: 1. Coronary artery disease, status post stenting. 2. Allergic dermatitis, etiology unknown. PLAN: He is started on IV Decadron and topical Diprolene for rash. Follow with Cardiology. There is a number of medicines that he is on that could be related to the rash, but most of them cannot be stopped. MMODL / IJN: [id number] /
--- NOTE | 2018-03-29 15:22 | PN ---
PROGRESS NOTE DATE OF SERVICE: 03/28/2018 CHIEF COMPLAINT: Chest pain and pruritus. HISTORY OF PRESENT ILLNESS: This gentleman is still having a little trouble with pruritus. He is going for his cardiac cath today. PHYSICAL EXAMINATION: Chest is clear. Cardiac exam is normal. Abdomen is soft, nontender. He has done more extensive maculopapular pruritic dermatitis. Etiology for this is not clear. IMPRESSION: 1. Chest pain. 2. Pruritus. PLAN: Cardiac cath today. MMODL / IJN: [id number] /
[2018-03-29] MEDS: CLOPIDOGREL 75 MG TAB PO SCH (17:48)
[2018-03-29] MEDS: hydrALAZINE HCL 50 MG TAB PO SCH (19:54)
[2018-03-29] MEDS: ZOLPIDEM 5 MG TAB PO PRN (19:54)
[2018-03-29] MEDS: ATORVASTATIN 80 MG TAB PO SCH (19:54)
[2018-03-29] MEDS: LEVOFLOXACIN 500 MG TAB PO SCH (19:54)
[2018-03-30] MEDS: NITROGLYCERIN OINT 1 INCH/GM PACKET TOPICAL SCH ×3 (04:48→16:29)
[2018-03-30] MEDS: DEXAMETHASONE SOD PHOSPHATE 4 MG/ML 1 ML VIAL IV SCH ×3 (06:31→16:28)
[2018-03-30] MEDS: hydrALAZINE HCL 50 MG TAB PO SCH ×2 (07:44→16:28)
[2018-03-30] MEDS: CLOPIDOGREL 75 MG TAB PO SCH (07:44)
[2018-03-30] MEDS: METOPROLOL TARTRATE 25 MG TAB PO SCH (07:44)
[2018-03-30] MEDS: ASPIRIN 325 MG TAB PO SCH (07:44)
[2018-03-30] MEDS: FAMOTIDINE 20 MG TAB PO SCH (07:45)
[2018-03-30] MEDS: LORATADINE 10 MG TAB PO SCH (07:45)
[2018-03-30] MEDS: BETAMETHASONE DIPROPIONATE 0.05% OINTMENT 45 GM TUBE TOPICAL SCH (07:50)
[2018-03-30 07:55] VITALS: RESP 18
[2018-03-30 13:33] VITALS: TEMP 97.4
--- NOTE | 2018-03-30 14:08 | P.PN ---
Subjective Progress Note Date: 03/30/18 Mr. Beasley is a pleasant 62-year-old male past medical history significant for hypertension and heavy tobacco use history. He smoke for 47 years and quit last March. He denies history of coronary artery disease, dyslipidemia or diabetes mellitus. We have been asked to see him in consultation for chest pain. He states Saturday evening he noticed a rash on his torso. For this reason he missed work Saturday and Saturday. He returned to work Saturday thinking he was feeling better. Upon returning to work he felt very tired and fatigued. 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 He decided to go sit down in his supervisors office for a few minutes to rest. Once he sat down he started feeling a tight heavy sensation in the mid-sternal region with radiation to the left shoulder. At the time he became very diaphoretic and nauseated. He denies dizziness, palpitations, nausea or vomiting. The pain persisted for approximately 30 minutes. He initially presented to [facility] and was subsequently transferred here. In follow-up today he is seen and examined resting comfortably in bed. He underwent cardiac catheterization yesterday which revealed a tight lesion in the proximal portion of the OM as well as a lesion in the range of about 50% of the mid circumflex. He also had disease in the midportion of the PDA branch of the RCA. LAD and left main was angiographically normal. He underwent successful stenting of the first OM as well as successful stenting of the PE branch of the RCA. Blood pressure 118/56 heart rate 79 afebrile maintaining oxygen saturation on room air. Laboratory data reviewed, WBC 14.4, hemoglobin 16.2, platelets 177, creatinine 1.21. He continues to complain of rash and itchiness to the thoracic region. He denies symptoms of chest pain, shortness of breath, dizziness or palpitations. Telemetry tracings been unremarkable. 03/30: The patient states that his rash is better today. He has not been seen by dermatology. He denies any chest pain. He was able to eat without any difficulty. No nausea or vomiting. Patient has been ambulating and showered in his room. He denies any lightheadedness and dizziness. Patient is cleared for discharge from cardiology. No medication changes made today. GENERAL: This is a 62-year-old -Irish male in no apparent distress at the time of my examination. Urticaria noted on the thorax, improving. LUNGS: Clear to auscultation no wheezes, rales or rhonchi. No chest wall tenderness is noted on palpation or with deep breathing. HEART: Regular rate and rhythm without murmurs, rubs or gallops. S1 and S2 heard. EXTREMITIES: No evidence of peripheral edema and no calf tenderness noted. Right wrist soft, clean, dry and intact with no evidence of hematoma, pulses strong and intact. ASSESSMENT Precordial chest pain with EKG abnormalities. Coronary artery disease status post angioplasty Hypertension History of nicotine dependence, quit 2017 Elevated creatinine, most recently was normal at 1.2 04/2017. PLAN He has been initiated on dual antiplatelet therapy as well as atorvastatin 80 mg daily. Prescriptions have been sent to his pharmacy. Stable from a cardiac perspective. Consider consultation by dermatology for ongoing rash prior to admission for one week with no known cause. Follow up with Dr. Pandya in 1 week. Nurse Practitioner note has been reviewed, I agree with a documented findings and plan of care. Patient was seen and examined. Objective - Vital Signs Vital signs: Vital Signs Temp 98.0 F 03/30/18 07:52 Pulse 80 03/30/18 07:52 Resp 18 03/30/18 07:52 BP 136/93 03/30/18 07:52 Pulse Ox 97 03/30/18 07:52 Intake & Output 03/29/18 03/30/18 03/30/18 18:59 06:59 18:59 Intake Total 1182 480 480 Output Total 1000 400 Balance 182 80 480 Weight 94 kg 94 kg Intake: Oral 1182 480 480 Output: Urine 1000 400 Other: Voiding Method Toilet Toilet Toilet # Voids 2 - Labs CBC & Chem 7: 03/29/18 05:33 03/29/18 05:33 Labs: Abnormal Lab Results - Last 24 Hours (Table) 03/29/18 Range/Units 05:33 IgE 1651.00 H (0.00-114.00) IU/mL
[2018-03-30 17:46] VITALS: BP 166/99; PULSE 82
[2018-03-30] MEDS: ATORVASTATIN 80 MG TAB PO SCH (18:03)
[2018-03-31] MEDS ORDERED: methylPREDNISolone 4 MG TAB TAPER PO SCH (09:00)
--- NOTE | 2018-04-01 15:31 | DS ---
DISCHARGE SUMMARY DATE OF DISCHARGE: 03/30/2018 CHIEF COMPLAINT: Chest pain. HISTORY OF PRESENT ILLNESS AND PHYSICAL EXAM: Details of this man's history and physical can be found in the initial workup. LABORATORY STUDIES: While he was in a hospital he had laboratory studies, details which can be found in the laboratory section of his chart. COURSE IN HOSPITAL: After admission he was placed on bedrest and started on intravenous fluids and serial EKGs and enzymes, which were unremarkable, but he was taken the chemistry laboratory technician by Cardiology and was found to have significant coronary artery disease for which a stent was placed. Postoperatively he did well. The only other problem that he had while he was in a hospital was extensive urticaria which he had prior to coming in. The etiology was never been determined. He responded to IV steroids and he was sent home with a Medrol Dosepak and antihistamines. He will be seen in the office. FINAL DIAGNOSES: 1. Unstable angina pectoris. 2. Coronary artery disease. 3. Urticaria, etiology unknown. OPERATIONS: Cardiac cath. CONSULTATIONS: Cardiology. He is improved. MMODL / IJN: [id number] /
== END 2018-03-30 18:10 | disposition home or self-care (01) ==
LOC: EC 16:10 → 1SOBS 16:30 → 3SCARD 03-28 13:20
PROVIDERS: ADMIT Family Medicine; ATTEND Family Medicine
DX: I25.110 Atherosclerotic heart disease of native coronary artery with unstable angina pectoris (principal); I10 Essential (primary) hypertension; L50.9 Urticaria, unspecified; E78.00 Pure hypercholesterolemia, unspecified; R94.4 Abnormal results of kidney function studies; Z90.49 Acquired absence of other specified parts of digestive tract; Z87.891 Personal history of nicotine dependence; Z80.3 Family history of malignant neoplasm of breast; Z87.440 Personal history of urinary (tract) infections
CPT/HCPCS: 96361 ×2; 96375; 96374; 99285; 93005; 93306; 93458; 85347; 80061; 80048; 82565; 82550; 82553; 84484; 85025; 85027; 85049 ×2; 85730 ×2; 81001; 82785; 86038; G0378 ×5; C9600; C1887 ×2; C1725 ×2; C1769; C1894; C1874 ×2; J2250; J0360; J1644 ×5; J1100 ×4; J2001; Q9967 ×2

== ENCOUNTER 2018-04-13 16:12 | Emergency (ER) | payer BC ==
--- NOTE | 2018-04-13 16:47 | ED ---
SOB HPI - General Chief Complaint: Shortness of Breath Stated Complaint: WEAKNESS, SOB, RASH Time Seen by Provider: 04/13/18 16:26 Source: patient Mode of arrival: wheelchair Limitations: no limitations - History of Present Illness Initial Comments: 62yo yo male with PMH of HTN ad CADs/p cardiac cath 03/30/18 presenting today for cc of shortness of breath and constipation. Pt states that when he presented for evaluation on the 03/29 for chest pain, he was also short of breath at that time. He states it increases with ambulation. He states that this shortness of breath has not changed throughout his stay at [facility] nor following his discharge. Pt states that he has the same amount and characteristic of shortness of breath, "that is not different from before I was admitted". Pt states he is complaint with all medications s/p cardiac cath. He denies chest pain, UE parathesias, jaw or back pain, shoulder pain, abdominal pain, nausea, bloating, belching, wheezing, sputum production, cough, LE edema/ swelling, calf pain, pain with deep inspiration, recent travel, history of cancer/previous DVT or PE, hemoptysis, cough, heart palpatations or any other associated symptoms. Pt states that she has been tracking his bowel movements since discharge and states he hasnt had a BM since he left on the . Pt admits to passing gas, small infrequent BM. Pt denies abdominal pain, distention, diarrhea. Upon arrival pt HR and BP elevated. Pt does not appear to be in acute distress/respiratory distress. - Related Data Home Medications Medication Instructions Recorded Confirmed Famotidine [Pepcid] 20 mg PO BID 03/26/18 04/13/18 Hydrocortisone Cream 1 applic TOPICAL QID PRN 03/26/18 04/13/18 [Hydrocortisone 2.5% Cream] Loratadine [Claritin] 10 mg PO DAILY 03/26/18 04/13/18 NIFEdipine [NIFEdipine ER] 30 mg PO DAILY 03/26/18 04/13/18 Triamterene-Hctz 37.5-25Mg 1 cap PO DAILY 03/26/18 04/13/18 [Dyazide 37.5-25 Capsule] Previous Rx's Medication Instructions Recorded Atorvastatin [Lipitor] 80 mg PO HS #90 tab 03/29/18 Clopidogrel [Plavix] 75 mg PO DAILY #90 tab 03/29/18 Metoprolol Tartrate [Lopressor] 25 mg PO BID #180 tab 03/29/18 Aspirin 325 mg PO DAILY #100 tab 03/30/18 Nitroglycerin Sl Tabs [Nitrostat] 0.4 mg SUBLINGUAL Q5M PRN #20 tab 03/30/18 diphenhydrAMINE [Benadryl] 50 mg PO QID PRN #100 cap 03/30/18 hydrALAZINE HCL [Apresoline] 50 mg PO TID #90 tab 03/30/18 Allergies Allergy/AdvReac Type Severity Reaction Status Date / Time No Known Allergies Allergy Verified 04/13/18 17:06 Review of Systems ROS Statement: Those systems with pertinent positive or pertinent negative responses have been documented in the HPI. ROS Other: All systems not noted in ROS Statement are negative. Constitutional: Denies: fever, chills Eyes: Denies: vision change Respiratory: Reports: dyspnea. Denies: cough, wheezes, hemoptysis, stridor Cardiovascular: Reports: dyspnea on exertion. Denies: chest pain, palpitations , orthopnea, edema, syncope Endocrine: Reports: fatigue (admits to chronic fatigue since prior to admissions 03/30) Gastrointestinal: Reports: constipation. Denies: abdominal pain, nausea, vomiting, diarrhea, hematemesis, melena, hematochezia Genitourinary: Denies: urgency, dysuria, frequency, hematuria Musculoskeletal: Denies: back pain Skin: Denies: rash Neurological: Denies: headache, numbness, paresthesias, confusion Past Medical History Past Medical History: Hypertension Additional Past Medical History / Comment(s): uti, History of Any Multi-Drug Resistant Organisms: None Reported Past Surgical History: Cholecystectomy, Heart Catheterization Past Anesthesia/Blood Transfusion Reactions: No Reported Reaction Additional Past Anesthesia/Blood Transfusion Reaction / Comment(s): pt stated he has never received blood Past Psychological History: No Psychological Hx Reported Smoking Status: Former smoker Past Alcohol Use History: None Reported Past Drug Use History: None Reported - Past Family History Mother Family Medical History: Cancer, CVA/TIA Additional Family Medical History / Comment(s): breast cancer Father Family Medical History: Dialysis, Renal Disease General Exam - General Exam Comments Initial Comments: General: The patient is awake and alert, in no distress, and does not appear acutely ill. Eye: Pupils are equal, round and reactive to light, extra-ocular movements are intact. No nystagmus. There is normal conjunctiva bilaterally. No signs of icterus. No pallor of mucosa. Ears, nose, mouth and throat: There are moist mucous membranes and no oral lesions. Neck: The neck is supple, there is no tenderness or JVD. Cardiovascular: There is a regular rate and rhythm. No murmur, rub or gallop is appreciated. Respiratory: Lungs are clear to auscultation, respirations are non-labored, breath sounds are equal. No wheezes, stridor, rales, or rhonchi. Gastrointestinal: Soft, non-distended, non-tender abdomen without masses or organomegaly noted. There is no rebound or guarding present. No CVA tenderness. Bowel sounds are unremarkable. Musculoskeletal: Normal ROM, no tenderness. Strength 5/5. Sensation intact. Radial and DP pulses equal bilaterally 2+. Neurological: A&O x 3. CN II-XII intact, There are no obvious motor or sensory deficits. Coordination appears grossly intact. Speech is normal. Skin: Skin is warm and dry and no rashes or lesions are noted. No leg swelling or LE edema Psychiatric: Cooperative, appropriate mood & affect, normal judgment. Limitations: no limitations Course Vital Signs 04/13/18 04/13/18 04/13/18 16:17 17:18 19:31 Temperature 97.8 F 98.0 F Pulse Rate 108 H 111 H Respiratory 22 22 19 Rate Blood Pressure 129/94 128/98 O2 Sat by Pulse 98 98 Oximetry 04/13/18 04/13/18 20:39 21:42 Temperature 97.7 F Pulse Rate 103 H 104 H Respiratory 19 18 Rate Blood Pressure 134/106 148/88 O2 Sat by Pulse 97 97 Oximetry - Reevaluation(s) Reevaluation #1: Lab was to draw pt labs, labs remain undrawn. 04/13/18 18:41 Medical Decision Making - Medical Decision Making 62 with cc of shortness of breath x months. Pt oxygenating well, >97% throughout visit today. HR elevated. Given history I was concerned for heart failure, ACS. ACS work-up negative, no acute EKG findings in comparison with previous. This was reviewed by myself and Dr. Gomez. Troponin (-). D-dimer (-) , pt Wells Score 1.5, low risk for PE. Pt is previous smoking only having quit for 1 year, however lung sounds clear to auscultation. BNP WNL. Anion Gap and CO2 WNL. CXR revealed lipomatosis that was compared with previous CT. CT of chest obtained to further evaluation lipomatosis, no significant change, aneursyn 4.1 cm of the ascending aorta demonstrated. All findings discussed with patient. Mild atelectasis of the lung bases noted, no clinical signs or symptoms concerning for pneumonia at this time. In regard to constipation, there was normal fecal pattern and no evidence of obstructive gas pattern on KUB. Pt did not seem concerned by complaints, more so patients . Pt was evaluated face to face by Dr. Gomez who at this time feels pt is deconditioned causing chronic shortness of breath, I agree with impression. No overt signs concerning for acute respiratory distress or fluid overload on exam. I recommended discussing cardic rehabilitation with boilermaker fitter. At this time we feel pt is stable for discharge, he was given nightly dose of metoprolol for BP management prior to discharge. Pt is agreeable with discharge. I instructed patient that he is to f/u closely with primary provider as well as boilermaker fitter.. All return parameters were discussed at length, including return for persistent or worsening symptoms pt verbalized understanding. Pt was discharged in stable condition, denied questions at this time. - Lab Data Result diagrams: 04/13/18 18:54 04/13/18 18:54 Lab Results 04/13/18 04/13/18 04/13/18 Range/Units 18:54 18:54 18:54 WBC 9.6 (3.8-10.6) k/uL RBC 7.12 H (4.30-5.90) m/uL Hgb 15.6 (13.0-17.5) gm/dL Hct 49.4 (39.0-53.0) % MCV 69.4 L (80.0-100.0) fL MCH 21.9 L (25.0-35.0) pg MCHC 31.6 (31.0-37.0) g/dL RDW 15.1 (11.5-15.5) % Plt Count 141 L (150-450) k/uL Neutrophils % 66 % Lymphocytes % 21 % Monocytes % 6 % Eosinophils % 4 % Basophils % 0 % Neutrophils # 6.3 (1.3-7.7) k/uL Lymphocytes # 2.1 (1.0-4.8) k/uL Monocytes # 0.6 (0-1.0) k/uL Eosinophils # 0.4 (0-0.7) k/uL Basophils # 0.0 (0-0.2) k/uL Microcytosis Marked PT 10.4 (9.0-12.0) sec INR 1.1 (<1.2) APTT 23.2 (22.0-30.0) sec D-Dimer 0.41 (<0.60) mg/L FEU Sodium 139 (137-145) mmol/L Potassium 4.8 (3.5-5.1) mmol/L Chloride 105 (98-107) mmol/L Carbon Dioxide 26 (22-30) mmol/L Anion Gap 8 mmol/L BUN 31 H (9-20) mg/dL Creatinine 1.50 H (0.66-1.25) mg/dL Est GFR (CKD-EPI)AfAm 57 (>60 ml/min/1.73 sqM) Est GFR (CKD-EPI)NonAf 49 (>60 ml/min/1.73 sqM) Glucose 93 (74-99) mg/dL Calcium 9.1 (8.4-10.2) mg/dL Total Bilirubin 0.7 (0.2-1.3) mg/dL AST 54 (17-59) U/L ALT 73 H (21-72) U/L Alkaline Phosphatase 78 (38-126) U/L Total Creatine Kinase (55-170) U/L CK-MB (CK-2) (0.0-2.4) ng/mL CK-MB (CK-2) Rel Index Troponin I (0.000-0.034) ng/mL NT-Pro-B Natriuret Pep pg/mL Total Protein 6.9 (6.3-8.2) g/dL Albumin 3.6 (3.5-5.0) g/dL 04/13/18 04/13/18 Range/Units 18:54 18:54 WBC (3.8-10.6) k/uL RBC (4.30-5.90) m/uL Hgb (13.0-17.5) gm/dL Hct (39.0-53.0) % MCV (80.0-100.0) fL MCH (25.0-35.0) pg MCHC (31.0-37.0) g/dL RDW (11.5-15.5) % Plt Count (150-450) k/uL Neutrophils % % Lymphocytes % % Monocytes % % Eosinophils % % Basophils % % Neutrophils # (1.3-7.7) k/uL Lymphocytes # (1.0-4.8) k/uL Monocytes # (0-1.0) k/uL Eosinophils # (0-0.7) k/uL Basophils # (0-0.2) k/uL Microcytosis PT (9.0-12.0) sec INR (<1.2) APTT (22.0-30.0) sec D-Dimer (<0.60) mg/L FEU Sodium (137-145) mmol/L Potassium (3.5-5.1) mmol/L Chloride (98-107) mmol/L Carbon Dioxide (22-30) mmol/L Anion Gap mmol/L BUN (9-20) mg/dL Creatinine (0.66-1.25) mg/dL Est GFR (CKD-EPI)AfAm (>60 ml/min/1.73 sqM) Est GFR (CKD-EPI)NonAf (>60 ml/min/1.73 sqM) Glucose (74-99) mg/dL Calcium (8.4-10.2) mg/dL Total Bilirubin (0.2-1.3) mg/dL AST (17-59) U/L ALT (21-72) U/L Alkaline Phosphatase (38-126) U/L Total Creatine Kinase 36 L (55-170) U/L CK-MB (CK-2) <0.2 (0.0-2.4) ng/mL CK-MB (CK-2) Rel Index Troponin I 0.022 (0.000-0.034) ng/mL NT-Pro-B Natriuret Pep 67 pg/mL Total Protein (6.3-8.2) g/dL Albumin (3.5-5.0) g/dL - EKG Data EKG Comments: Ventricular rate 107 bpm, OR interval 128 ms, QR laceration 80 ms, QT/QTC 322/ 429 ms, this is sinus tachycardia, noted bilateral enlargement of the atrial. Non specific T wave abnormality. No noted ST elevated/depression. Reviewed by myself and Dr. Gomez. Compared with previous EKG. Disposition Clinical Impression: Shortness of breath Disposition: HOME SELF-CARE Instructions: Shortness of Breath (ED) Additional Instructions: Please use previously prescribed medication as discussed. Please follow-up with family doctor in the next 2 days, please follow-up with boilermaker fitter in next 2-3 days. Please return to emergency room if the symptoms increase or worsen or for any other concerns, as discussed. Is patient prescribed a controlled substance at d/c from ED?: No Referrals: Zuhair Harding MD [Primary Care Provider] - 1-2 days [facility] [Provider Group] - 1-2 days Time of Disposition: 21:09
--- NOTE | 2018-04-13 17:59 | XR ---
EXAMINATION TYPE: XR KUB DATE OF EXAM: 04/13/2018 COMPARISON: January 12, 2011 HISTORY: Short of breath TECHNIQUE: 2 views upright. FINDINGS: There is no sign of intestinal obstruction or pneumoperitoneum. There is some infiltrate a nd pleural reaction at the lateral left lung base. There are no pathologic calcifications over the ki dneys. There are clips from cholecystectomy. Fecal pattern is normal. IMPRESSION: Nonacute abdomen. There is new left lower lobe infiltrate and pleural reaction compared t o old exam.
--- NOTE | 2018-04-13 18:04 | XR ---
EXAMINATION TYPE: XR chest 2V DATE OF EXAM: 04/13/2018 COMPARISON: 06/28/2010 HISTORY: Short of breath and weakness TECHNIQUE: Frontal and lateral views of the chest are obtained. FINDINGS: There is some linear density at the lung bases. There is no heart failure. Heart size is n ormal. There is widening of the mediastinum that is due to mediastinal lipomatosis on the chest CT sc an of 03/26/2018. There are chest leads. IMPRESSION: There is some mediastinal lipomatosis. Minimal linear infiltrate and atelectasis at the lung bases is increased compared to old exam.
[2018-04-13 19:04] LABS: Basophils % (A) 0 %; Eosinophils # (A) 0.4 k/uL (0-0.7); Eosinophils % (A) 4 %; HCT 49.4 % (39.0-53.0); HGB 15.6 gm/dL (13.0-17.5); Lymphocytes # (A) 2.1 k/uL (1.0-4.8); Lymphocytes % (A) 21 %; MCH 21.9 pg (25.0-35.0); MCHC 31.6 g/dL (31.0-37.0); MCV 69.4 fL (80.0-100.0); Microcytosis Marked; Monocytes # (A) 0.6 k/uL (0-1.0); Monocytes % (A) 6 %; Neutrophils # (A) 6.3 k/uL (1.3-7.7); Neutrophils % (A) 66 %; Platelet Count 141 k/uL (150-450); RDW 15.1 % (11.5-15.5); WBC 9.6 k/uL (3.8-10.6)
[2018-04-13 19:15] LABS: Albumin 3.6 g/dL (3.5-5.0); Calcium 9.1 mg/dL (8.4-10.2); Potassium 4.8 mmol/L (3.5-5.1); Total Bilirubin 0.7 mg/dL (0.2-1.3); Total Protein 6.9 g/dL (6.3-8.2)
[2018-04-13 19:19] LABS: Creatine Kinase 36 U/L (55-170)
[2018-04-13 19:24] LABS: D-Dimer 0.41 mg/L FEU (<0.60); INR 1.1 (<1.2); Partial Thromboplastin Time 23.2 sec (22.0-30.0); Prothrombin Time 10.4 sec (9.0-12.0)
[2018-04-13 19:26] LABS: RBC 7.12 m/uL (4.30-5.90)
[2018-04-13 19:32] LABS: Creatine Kinase MB <0.2 ng/mL (0.0-2.4); Troponin I 0.022 ng/mL (0.000-0.034)
[2018-04-13] MEDS ORDERED: SODIUM CHLORIDE 0.9% 500 ML 500 ML IV ONE (20:07)
--- NOTE | 2018-04-13 20:24 | CT ---
EXAMINATION TYPE: CT chest wo con DATE OF EXAM: 04/13/2018 COMPARISON: 03/26/2018 HISTORY: SOB, weakness. Abnormal CXR CT DLP: 293.1 mGycm. Automated Exposure Control for Dose Reduction was Utilized. TECHNIQUE: CT scan of the thorax is performed without IV contrast. FINDINGS: There is large amount of fatty tissue in the mediastinum consistent with mediastinal lipomatosis. The re is mild atheromatous change in the thoracic aorta. There is 4.1 cm aneurysm of the ascending aorta . Heart size is normal. There is no pericardial effusion. There is no mediastinal adenopathy. There a re no hilar masses. There is coarse interstitial density at the lung bases. There is no evidence of a pulmonary mass. There is minimal emphysema at the lung apices. IMPRESSION: 4.1 cm aneurysm of the ascending aorta without change. Mediastinal lipomatosis. Mild line ar infiltrate and atelectasis at the lung bases slightly worse than last CT scan.
[2018-04-13] MEDS ORDERED: LABETALOL 5 MG/ML VIAL MDV IVP STA (21:25)
[2018-04-13] MEDS ORDERED: METOPROLOL TARTRATE 25 MG TAB PO SCH (21:45)
[2018-04-13 21:54] VITALS: BP 148/88; PULSE 104; RESP 18; TEMP 97.7
== END 2018-04-13 21:48 | disposition home or self-care (01) ==
LOC: EC 16:12
DX: I71.2 Thoracic aortic aneurysm, without rupture (principal); J98.11 Atelectasis; R00.9 Unspecified abnormalities of heart beat; R21 Rash and other nonspecific skin eruption; I10 Essential (primary) hypertension; E88.2 Lipomatosis, not elsewhere classified; Z87.891 Personal history of nicotine dependence; Z79.899 Other long term (current) drug therapy; Z95.818 Presence of other cardiac implants and grafts
CPT/HCPCS: 36415; 71046; 71250; 74018; 80053; 82550; 82553; 83880; 84484; 85025; 85379; 85610; 85730; 93005; 96360; 99285

== ENCOUNTER → 2019-12-11 | Outpatient (CLI) | payer BC ==
--- NOTE | 2019-12-14 06:29 | US ---
EXAMINATION TYPE: US kidneys/renal and bladder DATE OF EXAM: 12/11/2019 COMPARISON: NONE CLINICAL HISTORY: N39.8 Incomplete voiding. incomplete voiding EXAM MEASUREMENTS: Right Kidney: 9.9 x 4.4 x 4.2 cm Left Kidney: 9.5 x 5.5 x 4.6 cm Post Void Residual Volume: 59.8 mL Right Kidney: cystic areas lower pole = 1.5 x 1.5 x 1.3cm and 1.5 x 1.4 x 1.4cm Left Kidney: no evidence of hydronephrosis Bladder: Lobulation noted Bilateral Jets seen: no Normal Post Void Residual: no Prostate appears prominent There is no evidence for hydronephrosis at this point in time. No nephrolithiasis is seen. Technolog ist identifies 1.3 cm hypoechoic to anechoic lesion with increased through transmission favoring part ially exophytic thin-walled cyst and thin-walled 1.5 cm cyst with thin septa in the right kidney. Th e urinary bladder is satisfactorily distended. Prominent prostate gland bulging of bladder base is se en. Bilateral ureteral jets are not seen. Significant volume of urine after voiding noted near 60 cc . IMPRESSION: Abnormal post void residual confirmed likely on basis of BPH. Correlate clinically.
== END | disposition home or self-care (01) ==
LOC: RADUSWWP 15:59
PROVIDERS: ATTEND Family Medicine
DX: N39.8 Other specified disorders of urinary system (principal)
CPT/HCPCS: 76770

== ENCOUNTER 2023-12-16 04:46 | Inpatient (IN) | payer BC, MEDICARE ==
--- NOTE | 2024-01-06 17:23 | CT ---
DATE OF EXAM: 12/16/2023 EXAM: CT brain without INDICATION: Patient age:SHERIN HART : 1955 Reason for study: Unsteady gait; COMPARISON: No None, please note PACS downtime occurred during the radiologist interpretation of thes e images with limited priors/reports. ne. TECHNIQUE: Multiple axial CT images of the brain were obtained without IV contrast. One or more CT do se reduction strategies were utilized during this examination. Total DLP administered was 1184.4 mGy cm. FINDINGS: Extra-axial spaces: No abnormal extra-axial fluid collections. Ventricular system: Within normal limits Cerebral parenchyma: Mineralization of the basal ganglia bilaterally. No acute intraparenchymal hemor rhage or mass effect. The leigh-white junction is well differentiated. Cerebellum: Unremarkable. Mass effect: No evidence of midline shift. Intracranial vasculature: unremarkable Soft tissues: Normal. Calvarium/osseous structures: No depressed skull fracture. Paranasal sinuses and mastoid air cells: Clear. Visualized orbits: Orbital contents are intact. IMPRESSION: 1. No acute intracranial process. 2. Nonspecific white matter changes, likely secondary to chronic small vessel ischemic disease. Called findings to Dr carbajal 928pm 12/16/2023
--- NOTE | 2024-01-16 19:40 | MR ---
"Jesus Beasley : 1955 MRI BRAIN without CONTRAST DATE: 12/17/2023 CLINICAL HISTORY: 68-year-old male CVA, slurred speech, off balance, not feeling normal. TECHNIQUE: Multiplanar, multisequence imaging of the brain and brainstem is performed without IV cont rast. Diffusion-weighted imaging is performed. Comparison: No priors available during downtime. FINDINGS: Diffusion weighted images demonstrate restricted diffusion within the right paramedian and right late ral ventral idalia. There is corresponding bright T2/FLAIR weighted signal here. No evidence of other d iffusion abnormality. T2/FLAIR weighted sequences show additional moderate patchy and confluent bright white matter change in both cerebral hemispheres. Gradient sequence shows foci of susceptibility artifact left lateral idalia, right ventral idalia, bilate ral thalamus, bilateral basal ganglia, and bilateral periatrial regions. There is no extra-axial fluid collection. The ventricular system and cisternal spaces are normal in size and appearance. The brain volume is a ge appropriate. The major intracranial flow voids are intact. Midline structures demonstrate normal morphology. The craniocervical junction appears within normal limits. There is moderate mucosal thickening in the ethmoid air cells. Slight rightward nasal septal deviatio n. Lobulated mucosal thickening along the floor of the right maxillary sinus. Globes are intact. IMPRESSION: 1. Acute infarct greater than 6 hours in duration involving the right paramedian and right lateral ve ntral idalia. No mass effect or midline shift. 2. Background moderate burden of chronic small vessel ischemic disease. 3. Numerous scattered small foci of susceptibility artifact which could relate to amyloid deposition or small microhemorrhages such as relating to hypertension. 4. Moderate chronic ethmoid sinus disease. Dictated by Dr. Ron Rubin"
--- NOTE | 2024-01-17 12:57 | CT ---
EXAM: CT Angiography Head Without and With Intravenous Contrast CLINICAL HISTORY: neuro consult, pt AMS TECHNIQUE: Axial computed tomographic angiography images of the head without and with intravenous contrast. CTDI is 54.3 mGy and DLP is 896.55 mGy-cm. This CT exam was performed using one or more of the following dose reduction techniques: automated exposure control, adjustment of the mAa nd/or kV according to patient size, and/or use of iterative reconstruction technique. MIP reconstructed images were created and reviewed. COMPARISON: No relevant prior studies available. FINDINGS: VASCULATURE: The dural venous sinuses are patent. Right internal carotid artery:No acute findings. Intracranial segment is patent with no significant stenosis. No aneurysm. Right anterior cerebral artery:Unremarkable. No occlusion or significant stenosis. No aneurysm. Right middle cerebral artery:Unremarkable. No occlusion or significant stenosis. No aneurysm. Right posterior cerebral artery:Unremarkable. No occlusion or significant stenosis. No aneurysm. Right vertebral artery:Unremarkable as visualized. Left internal carotid artery:No acute findings. Intracranial segment is patent with no significant stenosis. No aneurysm. Left anterior cerebral artery:Unremarkable. No occlusion or significant stenosis. No aneurysm. Left middle cerebral artery:Unremarkable. No occlusion or significant stenosis. No aneurysm. Left posterior cerebral artery:Unremarkable. No occlusion or significant stenosis. No aneurysm. Left vertebral artery:Unremarkable as visualized. Basilar artery:Unremarkable. No occlusion or significant stenosis. No aneurysm. HEAD: Brain:No acute findings. Advanced nonspecific white matter changes. No hemorrhage. No edema. Normal enhancement. Ventricles:Unremarkable. No ventriculomegaly. Bones/joints:No acute fracture. Soft tissues:Unremarkable. Sinuses:Unremarkable as visualized. No acute sinusitis. Mastoid air cells:Unremarkable as visualized. No mastoid effusion. IMPRESSION: Negative CT angiogram of the head. EXAM: CT Angiography Neck With Intravenous Contrast CLINICAL HISTORY: neuro consult, pt AMS TECHNIQUE: Routine carotid CT angiography protocol was performed with intravenous contrast. NASCET criteria using the distal ICAs for comparison were used for evaluation of stenoses. CTDI is 54.3 mGy and DLP is 896.55 mGy-cm. This CT exam was performed using one or more of the following dose reduction techniques: automated exposure control, adjustment of the mA and/or kV according to patient size, and/or use of iterative reconstruction technique. MIP reconstructed images were created and reviewed. COMPARISON: None. FINDINGS: VASCULATURE: Right common carotid artery:Unremarkable. No occlusion or significant stenosis. No dissection. Right internal carotid artery:Unremarkable. Extracranial segment is patent with no occlusion or significant stenosis. No dissection. Right external carotid artery:Unremarkable. No occlusion. Right vertebral artery:Unremarkable. No occlusion or significant stenosis. No dissection. Left common carotid artery:Unremarkable. No occlusion or significant stenosis. No dissection. Left internal carotid artery:Unremarkable. Extracranial segment is patent with no occlusion or significant stenosis. No dissection. Left external carotid artery:Unremarkable. No occlusion. Left vertebral artery:Unremarkable. No occlusion or significant stenosis. No dissection. NECK: Bones/joints: There is a critical spinal canal stenosis at C3-4, C4-5, C5-6 and C6-7. Recommend MRI of the cervical spine to evaluate for myelopathy. No acute fracture. Soft tissues:Unremarkable. Lung apices:Bronchitis with pneumonitis, which maybe of infectious or inflammatory etiologies. CAROTID STENOSIS REFERENCE USING NASCET CRITERIA: %ICA stenosis = (1 - narrowest ICA diameter/diameter of distal cervical ICA) x 100. Mild - <50%stenosis. Moderate - 50-69%stenosis. Severe - 70-94%stenosis. Near occlusion - 95-99%stenosis. Occluded - 100%stenosis. IMPRESSION: Negative CTA neck. Radiologist: Ekta Krueger MD Electronically Signed: 12/18/23 01:00 Study ready at 00:26 and initial results transmitted at 01:00 Results also transmitted to Film Room, Film Room @ [phone] (Fax) [facility]
--- NOTE | 2024-01-29 09:01 | XR ---
EXAMINATION TYPE: XR chest 2V DATE OF EXAM: 12/16/2023 COMPARISON: Chest radiographs from 04/13/2018, CT chest 04/13/2018 TECHNIQUE: XR chest 2V Frontal and lateral views of the chest. CLINICAL INDICATION:Male, 68 years old with history of DIZZINESS; FINDINGS: Lungs/Pleura: There is flattening of the diaphragm with increased lucency of the lungs. No evidence o f pneumothorax, pleural effusion or focal consolidation. Bibasilar linear atelectasis. Pulmonary vascularity: Unremarkable. Heart/mediastinum: Cardiomediastinal silhouette is stable with similar prominence of the right medias tinal margin related to previously seen mediastinal lipomatosis. Musculoskeletal: No acute osseous pathology. IMPRESSION: 1. Bibasilar linear atelectasis. 2. COPD changes. [facility], , 01/29/2024 8:59 AM
--- NOTE | 2024-01-29 09:37 | XR ---
Patient: Jesus Beasley L Ordering Physician: Unknown, Unknown ID: [id number] Phone, Pager: Phone: N/A Pager: N/A : 1955 Age/Gender: 68Y, M Primary Location: N/A Procedure: XR shoulder comple te LT Study Date: 12/19/2023 2:03:09 PM EXAMINATION TYPE: XR shoulder complete LT DATE OF EXAM: 01/05/2024 11:19 AM CLINICAL INDICATION: Rotator cuff pain. COMPARISON: None TECHNIQUE: XR shoulder complete LT; examined in AP, internally rotated and scapular Y projections. FINDINGS: No evidence of acute osseous pathology, joint dislocation, or soft tissue swelling. The remaining po rtions of the visualized chest are unremarkable. Degeneration changes of the acromion, distal clavic le with osteophyte formation. There is osteophyte formation of the glenoid and humeral head. There is joint space narrowing of glenohumeral joint. IMPRESSION: No acute osseous pathology.
--- NOTE | 2024-01-29 10:07 | XR ---
Patient: Jesus Beasley L Ordering Physician: Unknown, Unknown ID: [id number] Phone, Pager: Phone: N/A Pager: N/A : 1955 Age/Gender: 68Y, M Primary Location: N/A Procedure: XR SHOULDER COMPLE TE LT Study Date: 12/18/2023 1:51:00 PM EXAMINATION TYPE: XR shoulder complete LT DATE OF EXAM: 01/05/2024 10:51 AM CLINICAL INDICATION: Pain COMPARISON: None TECHNIQUE: XR shoulder complete LT; examined in AP, internally rotated and scapular Y projections. FINDINGS: No evidence of acute osseous pathology, joint dislocation, or soft tissue swelling. The remaining po rtions of the visualized chest are unremarkable. Degeneration changes of the acromion, distal clavic le with osteophyte formation. There is osteophyte formation of the glenoid and humeral head. There is joint space narrowing of glenohumeral joint. IMPRESSION: 1. No acute osseous pathology. 2. Mild shoulder osteoarthrosis.
== END 2023-12-19 15:16 | disposition home or self-care (01) | DRG 65 ==
LOC: DISRECOVER 04:46
PROVIDERS: ADMIT Hospitalist; ATTEND Hospitalist
DX: I63.81 Other cerebral infarction due to occlusion or stenosis of small artery (principal); I62.9 Nontraumatic intracranial hemorrhage, unspecified; R29.703 NIHSS score 3; I08.3 Combined rheumatic disorders of mitral, aortic and tricuspid valves; I10 Essential (primary) hypertension; R47.81 Slurred speech; R27.0 Ataxia, unspecified; I67.89 Other cerebrovascular disease; E78.00 Pure hypercholesterolemia, unspecified; M25.512 Pain in left shoulder; Z91.148 Patient's other noncompliance with medication regimen for other reason
CPT/HCPCS: 70450; 70496; 70498; 70551; 71046; 80053; 81003; 83735; 84484; 85025; 99285

== ENCOUNTER 2023-12-16 14:15 | Inpatient (IN) | payer BC ==
[2023-12-16] MEDS ORDERED: MECLIZINE 25 MG TAB ONE (19:16)
[2023-12-17] MEDS ORDERED: amLODIPine 5 MG TAB ONE (15:37)
[2023-12-17] MEDS ORDERED: METOPROLOL TARTRATE 50 MG TAB ONE (15:38)
[2023-12-17] MEDS ORDERED: HEPARIN SODIUM,PORCINE 5,000 UNIT/ML 1 ML VIAL ONE (15:38)
[2023-12-17] MEDS ORDERED: FAMOTIDINE 20 MG TAB ONE (15:38)
[2023-12-17] MEDS ORDERED: LOSARTAN 50 MG TAB ONE (15:38)
[2023-12-17] MEDS ORDERED: ASPIRIN 325 MG TAB ONE (20:49)
[2023-12-17] MEDS ORDERED: CLOPIDOGREL 75 MG TAB ONE (20:50)
[2023-12-17] MEDS ORDERED: cefTRIAXone 1 GM VIAL ONE (20:51)
[2023-12-18] MEDS ORDERED: SODIUM CHLORIDE 0.9% 50 ML BAG ONE (08:00)
[2023-12-18] MEDS ORDERED: DEXTROSE 5%-0.9% NACL 1,000 ML BAG IV ONE (08:00)
[2023-12-18] MEDS ORDERED: ASPIRIN 325 MG TAB ONE (10:28)
[2023-12-18] MEDS ORDERED: HEPARIN SODIUM,PORCINE 5,000 UNIT/ML 1 ML VIAL ONE (10:28)
[2023-12-18] MEDS ORDERED: METOPROLOL TARTRATE 50 MG TAB ONE (10:28)
[2023-12-18] MEDS ORDERED: FAMOTIDINE 20 MG TAB ONE (10:28)
[2023-12-18] MEDS ORDERED: CLOPIDOGREL 75 MG TAB ONE (10:29)
[2023-12-18] MEDS ORDERED: cefTRIAXone IN SWFI 1,000 MG/10 ML SYRINGE IVP ONE (10:29)
[2023-12-18] MEDS ORDERED: amLODIPine 5 MG TAB ONE (10:29)
[2023-12-18] MEDS ORDERED: LOSARTAN 50 MG TAB ONE (10:29)
[2023-12-19] MEDS ORDERED: HEPARIN SODIUM,PORCINE 5,000 UNIT/ML 1 ML VIAL ONE ×2 (02:31→08:38)
[2023-12-19] MEDS ORDERED: METOPROLOL SUCCINATE (ER) 100 MG TAB.ER.24H PO ONE (08:38)
[2023-12-19] MEDS ORDERED: CLOPIDOGREL 75 MG TAB ONE (08:38)
[2023-12-19] MEDS ORDERED: amLODIPine 10 MG TAB ONE (08:38)
[2023-12-19] MEDS ORDERED: ASPIRIN 325 MG TAB ONE (08:38)
[2023-12-19] MEDS ORDERED: LOSARTAN 50 MG TAB ONE (08:38)
[2023-12-19] MEDS ORDERED: cefTRIAXone 1 GM VIAL ONE (08:39)
[2023-12-19] MEDS ORDERED: FAMOTIDINE 20 MG/2 ML VIAL ONE (08:39)
== END 2023-12-19 15:16 | disposition home or self-care (01) | DRG 951 ==
LOC: EC 14:15 → 3NCARDOBS 12-17 04:46
PROVIDERS: ADMIT Hospitalist; ATTEND Hospitalist
DX: Z53.9 Procedure and treatment not carried out, unspecified reason (principal)
CPT/HCPCS: 70496; 70498; 70551; 71046; 80048; 80061; 80306; 81003; 81025; 82607; 82746; 83036; 85025; 93306

== ENCOUNTER 2024-02-12 16:31 | Emergency (ER) | payer BC, MEDICARE ==
[2024-02-12 16:37] VITALS: RESP 18; TEMP 97.5
--- NOTE | 2024-02-12 17:14 | ED ---
General Adult HPI - General Source: patient, RN notes reviewed Mode of arrival: wheelchair Limitations: no limitations <Noreen Riggins - Last Filed: 02/12/24 17:13> - General Source: patient, RN notes reviewed, old records reviewed Mode of arrival: wheelchair Limitations: no limitations - History of Present Illness Radiation: non-radiation Consistency: intermittent, now resolved Improves with: none Worsens with: none Associated Symptoms: confusion Treatments Prior to Arrival: none <Magan Zhu - Last Filed: 02/15/24 18:12> - General Chief complaint: Neuro Symptoms/Deficit Stated complaint: neuro symptoms, post-stroke Time Seen by Provider: 02/12/24 17:13 - History of Present Illness Initial comments: Quick note: 68-year-old male presented to ER with a chief complaint of feeling "off". Patient reports having a CVA approximately 2 months ago. He states he woke up this morning feeling "off". He states he feels weak. He denies any facial droop or one-sided weakness. His girlfriend reports this is similar symptoms and way he was acting to his previous CVA. (Noreen Riggins) This is a 68-year-old male complaining for evaluation of feeling off weakness confusion. Patient has persistent symptoms here in the ER which are improved here now patient feels well (Magan Zhu) - Related Data Home Medications Medication Instructions Recorded Confirmed Famotidine [Pepcid] 20 mg PO DAILY 03/26/18 02/12/24 Aspirin EC [Ecotrin Low Dose] 81 mg PO DAILY 02/12/24 02/12/24 Clobetasol Propionate [Temovate 1 applic TOPICAL BID 02/12/24 02/12/24 0.05% Oint] Losartan [Cozaar] 50 mg PO BID 02/12/24 02/12/24 Metoprolol Succinate (ER) [Toprol 100 mg PO DAILY 02/12/24 02/12/24 Xl] Rosuvastatin [Crestor] 10 mg PO HS 02/12/24 02/12/24 amLODIPine [Norvasc] 10 mg PO DAILY 02/12/24 02/12/24 hydroCHLOROthiazide [Hydrodiuril] 12.5 mg PO DAILY 02/12/24 02/12/24 Previous Rx's Medication Instructions Recorded Clopidogrel [Plavix] 75 mg PO DAILY #90 tab 03/29/18 Nitroglycerin Sl Tabs [Nitrostat] 0.4 mg SUBLINGUAL Q5M PRN #20 tab 03/30/18 Allergies Allergy/AdvReac Type Severity Reaction Status Date / Time No Known Allergies Allergy Verified 02/12/24 21:11 Review of Systems ROS Other: All systems not noted in ROS Statement are negative. <Noreen Riggins - Last Filed: 02/12/24 17:13> ROS Other: All systems not noted in ROS Statement are negative. <Magan Zhu - Last Filed: 02/15/24 18:12> ROS Statement: Those systems with pertinent positive or pertinent negative responses have been documented in the HPI. Past Medical History Past Medical History: CVA/TIA, Hypertension Additional Past Medical History / Comment(s): uti, History of Any Multi-Drug Resistant Organisms: None Reported Past Surgical History: Cholecystectomy, Heart Catheterization Past Anesthesia/Blood Transfusion Reactions: No Reported Reaction Additional Past Anesthesia/Blood Transfusion Reaction / Comment(s): pt stated he has never received blood Past Psychological History: No Psychological Hx Reported Smoking Status: Former smoker Past Alcohol Use History: None Reported Past Drug Use History: None Reported - Past Family History Mother Family Medical History: Cancer, CVA/TIA Additional Family Medical History / Comment(s): breast cancer Father Family Medical History: Dialysis, Renal Disease <Noreen Riggins - Last Filed: 02/12/24 17:13> General Exam Limitations: no limitations <Noreen Riggins - Last Filed: 02/12/24 17:13> General appearance: alert, in no apparent distress Head exam: Present: atraumatic, normocephalic, normal inspection Eye exam: Present: normal appearance, PERRL, EOMI. Absent: scleral icterus, conjunctival injection, periorbital swelling ENT exam: Present: normal exam, mucous membranes moist Neck exam: Present: normal inspection. Absent: tenderness, meningismus, lymphadenopathy Respiratory exam: Present: normal lung sounds bilaterally. Absent: respiratory distress, wheezes, rales, rhonchi, stridor Cardiovascular Exam: Present: regular rate, normal rhythm, normal heart sounds. Absent: systolic murmur, diastolic murmur, rubs, gallop, clicks GI/Abdominal exam: Present: soft, normal bowel sounds. Absent: distended, tenderness, guarding, rebound, rigid Extremities exam: Present: normal inspection, full ROM, normal capillary refill. Absent: tenderness, pedal edema, joint swelling, calf tenderness Back exam: Present: normal inspection Neurological exam: Present: alert, oriented X3, CN II-XII intact Psychiatric exam: Present: normal affect, normal mood Skin exam: Present: warm, dry, intact, normal color. Absent: rash <Magan Zhu - Last Filed: 02/15/24 18:12> - General Exam Comments Initial Comments: Visual Physical Exam Vital signs reviewed General: Well-appearing, nontoxic, no acute distress. Head: Normocephalic, atraumatic Eyes: PERRLA, EOMI ENT: Airway patent Chest: Nonlabored breathing Skin: No visual rash, normal skin tone Neuro: Alert and oriented 3 Musculoskeletal: No gross abnormalities (Noreen Riggins) NIH of 0 (Magan Zhu) Course <Magan Zhu - Last Filed: 02/15/24 18:12> Vital Signs 02/12/24 02/12/24 02/12/24 16:32 20:17 21:46 Temperature 97.5 F L Pulse Rate 81 81 84 Respiratory 18 18 18 Rate Blood Pressure 129/84 138/88 130/84 O2 Sat by Pulse 97 98 99 Oximetry - Reevaluation(s) Reevaluation #1: 02/12/24 21:33 Medical records reviewed (Magan Zhu) Reevaluation #2: 02/12/24 21:33 Patient symptoms improved remain resolved (Magan Zhu) Reevaluation #3: 02/12/24 21:33 Patient informed of results and questions answered (Magan Zhu) Reevaluation #4: Was pt. sent in by a medical professional or institution (, PA, RUBBER STAMP DIES INSPECTOR, urgent care, hospital, or long term...) When possible be specific @ -no Did you speak to anyone other than the patient for history (EMS, parent, family, police, friend...)? What history was obtained from this source @ -no Did you review nursing and triage notes (agree or disagree)? Why? @ -agree Are old charts reviewed (outside hosp., previous admission, EMS record, old EKG, old radiological studies, urgent care reports/EKG's, long term records)? Report findings @ -yes Differential Diagnosis (chest pain, altered mental status, abdominal pain women, abdominal pain men, vaginal bleeding, weakness, fever, dyspnea, syncope, head ache, dizziness, GI bleed, back pain, seizure, CVA, palpatations, mental health, musculoskeletal)? @ -prior EKG interpreted by me (3pts min.). @ -yes X-rays interpreted by me (1pt min.). @ -yes negative for acute disease CT interpreted by me (1pt min.). @ -Yes negative for acute disease U/S interpreted by me (1pt. min.). @ -no What testing was considered but not performed or refused? (CT, X-rays, U/S, labs)? Why? @ -none What meds were considered but not given or refused? Why? @ -none Did you discuss the management of the patient with other professionals (professionals i.e. , PA, RUBBER STAMP DIES INSPECTOR, lab, RT, psych nurse, social worker clinical, health plan advisor, teacher, corporate security officer, case checker)? Give summary @ -no Was smoking cessation discussed for >3mins.? @ -no Was critical care preformed (if so, how long)? @ -no Were there social determinants of health that impacted care today? How? (Homelessness, low income, unemployed, alcoholism, drug addiction, transportation, low edu. Level, literacy, decrease access to med. care, halfway, rehab)? @ -none Was there de-escalation of care discussed even if they declined (Discuss DNR or withdrawal of care, Hospice)? DNR status @ -no What co-morbidities impacted this encounter? (DM, HTN, Smoking, COPD, CAD, Cancer, CVA, ARF, Chemo, Hep., AIDS, mental health diagnosis, sleep apnea, morbid obesity)? @ -none Was patient admitted / discharged? Hospital course, mention meds given and route, prescriptions, significant lab abnormalities, going to OR and other pertinent info. @ - 68 male with history of CVA coming in with confusion not feeling well for feeling improved fever throughout ER stay, patient has negative testing negative imaging and can be discharged home Discharge Undiagnosed new problem with uncertain prognosis? @ -no Drug Therapy requiring intensive monitoring for toxicity (Heparin, Nitro, Insulin, Cardizem)? @ -no Were any procedures done? @ -no Diagnosis/symptom? @ -TIA Acute, or Chronic, or Acute on Chronic? @ -Acute Uncomplicated (without systemic symptoms) or Complicated (systemic symptoms)? @ -Complicated Side effects of treatment? @ -no Exacerbation, Progression, or Severe Exacerbation? @ -exacerbation Poses a threat to life or bodily function? How? (Chest pain, [place], VA, pneumonia, PE, COPD, DKA, ARF, appy, cholecystitis, CVA, Diverticulitis, Homicidal, Suicidal, threat to staff... and all critical care pts) @ -yes with TIA (Magan Zhu) Reevaluation #5: Differential CVA Ischemic stroke, hemorrhagic stroke, brain tumor, atypical migraine, Wernicke's encephalopathy, seizure, multiple sclerosis, meningitis, encephalitis, hypoglycemia, Guillain-[place], electrolytes disturbance, myasthenia gravis.... This is not meant to be an all-inclusive list (Magan Zhu) EKG Findings - EKG Comments: EKG Findings:: EKG is sinus 78 IN 169 QRS 84 QTc 402 - EKG Results: EKG: interpreted by ERMD <Magan Zhu - Last Filed: 02/15/24 18:12> Medical Decision Making <Noreen Riggins - Last Filed: 02/12/24 17:13> - Lab Data Result diagrams: 02/12/24 19:43 02/12/24 19:43 - Radiology Data Radiology results: report reviewed (CT brain is negative for acute disease), image reviewed <Magan Zhu - Last Filed: 02/15/24 18:12> - Medical Decision Making I performed the quick note portion of this chart. Electronically signed by Noreen Riggins PA-C (Noreen Riggins) 68 male with history of CVA coming in with confusion not feeling well for feeling improved fever throughout ER stay, patient has negative testing negative imaging and can be discharged home (Magan Zhu) - Lab Data Lab Results 02/12/24 02/12/24 02/12/24 Range/Units 19:43 19:43 19:43 WBC 8.9 (3.8-10.6) k/uL RBC 7.10 H (4.30-5.90) m/uL Hgb 15.7 (13.0-17.5) gm/dL Hct 50.4 (39.0-53.0) % MCV 71.0 L (80.0-100.0) fL MCH 22.1 L (25.0-35.0) pg MCHC 31.1 (31.0-37.0) g/dL RDW 15.2 (11.5-15.5) % Plt Count 168 (150-450) k/uL MPV 7.2 Neutrophils % 56 % Lymphocytes % 31 % Monocytes % 6 % Eosinophils % 4 % Basophils % 1 % Neutrophils # 5.0 (1.3-7.7) k/uL Lymphocytes # 2.8 (1.0-4.8) k/uL Monocytes # 0.5 (0-1.0) k/uL Eosinophils # 0.3 (0-0.7) k/uL Basophils # 0.0 (0-0.2) k/uL Hypochromasia Moderate Microcytosis Moderate PT 11.1 (10.0-12.5) sec INR 1.0 (<1.2) APTT 22.4 (22.0-30.0) sec Sodium 145 (137-145) mmol/L Potassium 3.9 (3.5-5.1) mmol/L Chloride 107 (98-107) mmol/L Carbon Dioxide 24 (22-30) mmol/L Anion Gap 14 mmol/L BUN 25 H (9-20) mg/dL Creatinine 1.36 H (0.66-1.25) mg/dL Est GFR (CKD-EPI)AfAm 61 (>60 ml/min/1.73 sqM) Est GFR (CKD-EPI)NonAf 53 (>60 ml/min/1.73 sqM) Glucose 132 H (74-99) mg/dL Calcium 9.5 (8.4-10.2) mg/dL Phosphorus (2.5-4.5) mg/dL Magnesium (1.6-2.3) mg/dL Total Bilirubin 0.6 (0.2-1.3) mg/dL AST 28 (17-59) U/L ALT 30 (4-49) U/L Alkaline Phosphatase 70 (38-126) U/L Troponin I (0.000-0.034) ng/mL Total Protein 7.7 (6.3-8.2) g/dL Albumin 4.3 (3.5-5.0) g/dL 02/12/24 02/12/24 Range/Units 19:43 19:43 WBC (3.8-10.6) k/uL RBC (4.30-5.90) m/uL Hgb (13.0-17.5) gm/dL Hct (39.0-53.0) % MCV (80.0-100.0) fL MCH (25.0-35.0) pg MCHC (31.0-37.0) g/dL RDW (11.5-15.5) % Plt Count (150-450) k/uL MPV Neutrophils % % Lymphocytes % % Monocytes % % Eosinophils % % Basophils % % Neutrophils # (1.3-7.7) k/uL Lymphocytes # (1.0-4.8) k/uL Monocytes # (0-1.0) k/uL Eosinophils # (0-0.7) k/uL Basophils # (0-0.2) k/uL Hypochromasia Microcytosis PT (10.0-12.5) sec INR (<1.2) APTT (22.0-30.0) sec Sodium (137-145) mmol/L Potassium (3.5-5.1) mmol/L Chloride (98-107) mmol/L Carbon Dioxide (22-30) mmol/L Anion Gap mmol/L BUN (9-20) mg/dL Creatinine (0.66-1.25) mg/dL Est GFR (CKD-EPI)AfAm (>60 ml/min/1.73 sqM) Est GFR (CKD-EPI)NonAf (>60 ml/min/1.73 sqM) Glucose (74-99) mg/dL Calcium (8.4-10.2) mg/dL Phosphorus 4.2 (2.5-4.5) mg/dL Magnesium 2.1 (1.6-2.3) mg/dL Total Bilirubin (0.2-1.3) mg/dL AST (17-59) U/L ALT (4-49) U/L Alkaline Phosphatase (38-126) U/L Troponin I <0.012 (0.000-0.034) ng/mL Total Protein (6.3-8.2) g/dL Albumin (3.5-5.0) g/dL Disposition <Noreen Riggins - Last Filed: 02/12/24 17:13> Is patient prescribed a controlled substance at d/c from ED?: No <Magan Zhu - Last Filed: 02/15/24 18:12> Clinical Impression: Transient cerebral ischemia, Confusion Disposition: HOME SELF-CARE Condition: Fair Instructions (If sedation given, give patient instructions): Transient Ischemic Attack (ED) Referrals: Zuhair Harding MD [Primary Care Provider] - 1-2 days
--- NOTE | 2024-02-12 17:51 | XR ---
EXAMINATION TYPE: XR chest 2V DATE OF EXAM: 02/12/2024 5:41 PM CLINICAL INDICATION: Male, 68 years old with history of altered mental status; [facility] COMPARISON: Chest radiographs from 12/16/2023. CT 04/13/2018 TECHNIQUE: XR chest 2V Frontal view of the chest. FINDINGS: Lungs/Pleura: There is no evidence of pleural effusion, focal consolidation, or pneumothorax. Pulmonary vascularity: Unremarkable. Heart/mediastinum: Right mediastinal outpouching/bulging compatible with fat seen on prior CT, possib ly lipoma. Cardiomediastinal silhouette is otherwise unremarkable. Musculoskeletal: No acute osseous pathology. Other findings: None IMPRESSION: No evidence for acute process. Right perihilar outpouching similar prior. Finding correlates with fatty tissue on prior CT [facility], , 02/12/2024 5:48 PM
--- NOTE | 2024-02-12 18:14 | CT ---
EXAMINATION TYPE: CT brain wo con CT DLP: 1197.4 mGycm, Automated exposure control for dose reduction was used. DATE OF EXAM: 02/12/2024 5:40 PM COMPARISON: 12/16/2023. CLINICAL INDICATION: Male, 68 years old with history of Neuro deficit, acute, stroke suspected, ff/in creased overall weakness, slightly short of breath, sluggish speech stroke x2 months ago TECHNIQUE: Brain: Axial CT images of the brain were obtained with coronal and sagittal reformats created and rev iewed. Contrast used: None. Oral contrast used: None. FINDINGS: Brain: Extra-axial spaces: No abnormal extra-axial fluid collections. Ventricular system: Within normal limits Cerebral parenchyma: Cerebral atrophy. No acute intraparenchymal hemorrhage or mass effect. The leigh -white junction is well differentiated. Scattered hypoattenuating areas are seen within the white mat ter. Cerebellum: Unremarkable. Mass effect: No evidence of midline shift. Intracranial vasculature: unremarkable Soft tissues: Normal. Calvarium/osseous structures: No depressed skull fracture. Paranasal sinuses and mastoid air cells: Mild scattered paranasal sinus disease. Visualized orbits: Orbital contents are intact. IMPRESSION: 1. No acute intracranial process. 2. Nonspecific white matter changes, likely secondary to chronic small vessel ischemic disease. [facility], , 02/12/2024 6:12 PM
[2024-02-12] MEDS: SODIUM CHLORIDE 0.9% 1,000 ML IV STA (19:53)
[2024-02-12 20:08] LABS: Basophils % (A) 1 %; Eosinophils # (A) 0.3 k/uL (0-0.7); Eosinophils % (A) 4 %; HCT 50.4 % (39.0-53.0); HGB 15.7 gm/dL (13.0-17.5); Hypochromasia Moderate; Lymphocytes # (A) 2.8 k/uL (1.0-4.8); Lymphocytes % (A) 31 %; MCH 22.1 pg (25.0-35.0); MCHC 31.1 g/dL (31.0-37.0); Magnesium 2.1 mg/dL (1.6-2.3); Mean Platelet Volume 7.2; Microcytosis Moderate; Monocytes # (A) 0.5 k/uL (0-1.0); Monocytes % (A) 6 %; Neutrophils % (A) 56 %; Phosphorus 4.2 mg/dL (2.5-4.5); Platelet Count 168 k/uL (150-450); RDW 15.2 % (11.5-15.5); WBC 8.9 k/uL (3.8-10.6)
[2024-02-12 20:09] LABS: ALT 30 U/L (4-49); AST 28 U/L (17-59); African American GFR (CKD) 61 (>60 ml/min/1.73 sqM); Albumin 4.3 g/dL (3.5-5.0); Alkaline Phosphatase 70 U/L (38-126); Anion Gap 14 mmol/L; Blood Urea Nitrogen 25 mg/dL (9-20); Calcium 9.5 mg/dL (8.4-10.2); Carbon Dioxide 24 mmol/L (22-30); Chloride 107 mmol/L (98-107); Glucose 132 mg/dL (74-99); Non-African American GFR(CKD) 53 (>60 ml/min/1.73 sqM); Potassium 3.9 mmol/L (3.5-5.1); Sodium 145 mmol/L (137-145); Total Bilirubin 0.6 mg/dL (0.2-1.3); Total Protein 7.7 g/dL (6.3-8.2)
[2024-02-12 20:51] LABS: Partial Thromboplastin Time 22.4 sec (22.0-30.0); Prothrombin Time 11.1 sec (10.0-12.5)
[2024-02-12 21:47] VITALS: BP 130/84; PULSE 84
== END 2024-02-12 21:49 | disposition home or self-care (01) ==
LOC: EC 16:31
CPT/HCPCS: 36415; 70450; 71046; 80053; 83735; 84100; 84484; 85025; 85610; 85730; 93005; 96360; 99285

== ENCOUNTER 2024-02-25 10:24 | Inpatient (IN) | payer MEDICARE ==
--- NOTE | 2024-02-25 10:58 | ED ---
General Adult HPI - General Chief complaint: Abdominal Pain Stated complaint: Blood in stool Time Seen by Provider: 02/25/24 10:28 Source: patient, RN notes reviewed, old records reviewed Mode of arrival: ambulatory Limitations: no limitations - History of Present Illness Initial comments: Patient is a 68-year-old male who presents emergency department complaining of concern for possible blood in his stool. Has noticed dark tarry stools for the last 3 days. Also may have noticed some darker red color in his stool today. Is unknown if he is on any blood thinners. Denies any significant abdominal pain. Denies any hematemesis or nausea or vomiting. Has a history of a cholecystectomy. History of hypertension, CVA. Has been taking Pepto-Bismol regularly for the last few weeks as well. He has no acute complaints at this time. - Related Data Home Medications Medication Instructions Recorded Confirmed Famotidine [Pepcid] 20 mg PO DAILY 03/26/18 02/25/24 Aspirin EC [Ecotrin Low Dose] 81 mg PO DAILY 02/12/24 02/25/24 Clobetasol Propionate [Temovate 1 applic TOPICAL BID 02/12/24 02/25/24 0.05% Oint] Losartan [Cozaar] 50 mg PO BID 02/12/24 02/25/24 Metoprolol Succinate (ER) [Toprol 100 mg PO DAILY 02/12/24 02/25/24 Xl] Rosuvastatin [Crestor] 10 mg PO HS 02/12/24 02/25/24 amLODIPine [Norvasc] 10 mg PO DAILY 02/12/24 02/25/24 hydroCHLOROthiazide [Hydrodiuril] 12.5 mg PO DAILY 02/12/24 02/25/24 Nitrofurantoin Monohyd/M-Cryst 100 mg PO BID 02/25/24 02/25/24 [Macrobid] Nitroglycerin Sl Tabs [Nitrostat] 0.4 mg SL Q5M PRN 02/25/24 02/25/24 Pantoprazole Sodium [Protonix] 20 mg PO DAILY 02/25/24 02/25/24 Previous Rx's Medication Instructions Recorded Clopidogrel [Plavix] 75 mg PO DAILY #90 tab 03/29/18 Allergies Allergy/AdvReac Type Severity Reaction Status Date / Time No Known Allergies Allergy Verified 02/25/24 11:07 Review of Systems ROS Statement: Those systems with pertinent positive or pertinent negative responses have been documented in the HPI. Review of Systems: CONST: Denies fever EYES: Denies blurry vision ENT: Denies nasal congestion C/V: Denies Chest pain RESP: Denies shortness of breath GI: Endorses possible dark tarry stools. : Denies dysuria SKIN: Denies rash. MSK: Denies joint pain. NEURO: Denies headache ROS Other: All systems not noted in ROS Statement are negative. Past Medical History Past Medical History: CVA/TIA, Hypertension Additional Past Medical History / Comment(s): uti, History of Any Multi-Drug Resistant Organisms: None Reported Past Surgical History: Cholecystectomy, Heart Catheterization Past Anesthesia/Blood Transfusion Reactions: No Reported Reaction Additional Past Anesthesia/Blood Transfusion Reaction / Comment(s): pt stated he has never received blood Past Psychological History: No Psychological Hx Reported Smoking Status: Former smoker Past Alcohol Use History: None Reported Past Drug Use History: None Reported - Past Family History Mother Family Medical History: Cancer, CVA/TIA Additional Family Medical History / Comment(s): breast cancer Father Family Medical History: Dialysis, Renal Disease General Exam - General Exam Comments Initial Comments: General: Appears in no acute distress. HEAD: Normal with no signs of head trauma. EYES: PERRLA, EOMI, conjunctiva normal, no discharge. ENT: Hearing grossly intact, normal oropharynx. RESPIRATORY: Clear breath sounds bilaterally. No wheezes, rales, or rhonchi. C/V: Regular rate and rhythm. S1 and S2 auscultated, no edema, peripheral pulses 2+ and intact throughout ABD: Abd is soft, nontender, nondistended. Rectal exam performed. No gross blood. Light brown stool. EXT: Normal range of motion, no obvious deformity SKIN: No rashes or lesions observed on exposed skin. NEURO: Alert and oriented x 4. Limitations: no limitations Course Vital Signs 02/25/24 02/25/24 02/25/24 10:25 11:51 13:28 Temperature 97.9 F Pulse Rate 72 Respiratory 22 18 16 Rate Blood Pressure 122/83 109/85 140/104 O2 Sat by Pulse 98 Oximetry 02/25/24 14:35 Temperature Pulse Rate 81 Respiratory 18 Rate Blood Pressure 135/90 O2 Sat by Pulse 94 L Oximetry Medical Decision Making - Medical Decision Making Was pt. sent in by a medical professional or institution (, BRITNEY, SPECIAL EDUCATION ASSISTANT, urgent care, hospital, or detention...) When possible be specific @ -No Did you speak to anyone other than the patient for history (EMS, parent, family, police, friend...)? What history was obtained from this source @ -No Did you review nursing and triage notes (agree or disagree)? Why? @ -I reviewed and agree with nursing and triage notes Were old charts reviewed (outside hosp., previous admission, EMS record, old EKG, old radiological studies, urgent care reports/EKG's, detention records)? Report findings @ -No old charts were reviewed Differential Diagnosis (chest pain, altered mental status, abdominal pain women, abdominal pain men, vaginal bleeding, weakness, fever, dyspnea, syncope, headache, dizziness, GI bleed, back pain, seizure, CVA, palpatations, mental health, musculoskeletal)? @ -Differential GI Bleed: Esophageal varices, aortoenteric fistula, Guerline-Winchester, gastritis, peptic ulcer disease, diverticulosis, inflammatory bowel disease, hemorrhoids, fissure, colitis, malignancy, Meckel's diverticulum, this is not meant to be an all- inclusive list. EKG interpreted by me (3pts min.). @ -As above X-rays interpreted by me (1pt min.). @ -None done CT interpreted by me (1pt min.). @ -CT negative for GI bleed. Only shows stool with no other obvious acute process. U/S interpreted by me (1pt. min.). @ -None done What testing was considered but not performed or refused? (CT, X-rays, U/S, labs)? Why? @ -None What meds were considered but not given or refused? Why? @ -None Did you discuss the management of the patient with other professionals (professionals i.e. , BRITNEY, SPECIAL EDUCATION ASSISTANT, lab, RT, psych nurse, social work coordinator, injection molder, teacher, training systems officer, rn case mgr)? Give summary @ -Discussed with Dr. Harding who accepted the admission. Was smoking cessation discussed for >3mins.? @ -No Was critical care preformed (if so, how long)? @ -No Were there social determinants of health that impacted care today? How? (Homelessness, low income, unemployed, alcoholism, drug addiction, transportation, low edu. Level, literacy, decrease access to med. care, fci, rehab)? @ -No Was there de-escalation of care discussed even if they declined (Discuss DNR or withdrawal of care, Hospice)? DNR status @ -No What co-morbidities impacted this encounter? (DM, HTN, Smoking, COPD, CAD, Cancer, CVA, ARF, Chemo, Hep., AIDS, mental health diagnosis, sleep apnea, morbid obesity)? @ -None Was patient admitted / discharged? Hospital course, mention meds given and route, prescriptions, significant lab abnormalities, going to OR and other pertinent info. @ -Patient presents over concern for GI bleed. We will obtain abdominal laboratory studies, type and screen as well as a CT abdomen pelvis GI bleed protocol. Patient be given Protonix. He was in agreement this plan. Vitals are within acceptable limits. Unknown if he is on blood thinners. We will have pharmacy update his home meds. Rectal exam is unremarkable. Light brown stool. Occult sent. Has been taking Pepto-Bismol for multiple weeks. Did discuss with him that this could be the cause for his stool appearance however we will continue with workup. Imaging negative for GI bleed. Laboratory studies remarkable for normal hemoglobin. Normal coags. Patient does have acute pancreatitis with a lipase of 4000 and amylase of 240. Occult blood is negative. I discussed with the patient and he will be admitted for fluids and monitoring considering the acute pancreatitis. He was in agreement this plan. I spoke with Dr. Harding his PCP who accepted the admission. Undiagnosed new problem with uncertain prognosis? @ -No Drug Therapy requiring intensive monitoring for toxicity (Heparin, Nitro, Insulin, Cardizem)? @ -No Were any procedures done? @ -No Diagnosis/symptom? @ -Pancreatitis Acute, or Chronic, or Acute on Chronic? @ -Acute Uncomplicated (without systemic symptoms) or Complicated (systemic symptoms)? @ -Complicated Side effects of treatment? @ -None Exacerbation, Progression, or Severe Exacerbation] @ -No Poses a threat to life or bodily function? @ -Potentially, yes - Lab Data Result diagrams: 02/25/24 10:53 02/25/24 10:53 Lab Results 02/25/24 02/25/24 02/25/24 Range/Units 10:53 10:53 10:53 WBC 8.6 (3.8-10.6) k/uL RBC 6.53 H (4.30-5.90) m/uL Hgb 14.4 (13.0-17.5) gm/dL Hct 46.0 (39.0-53.0) % MCV 70.5 L (80.0-100.0) fL MCH 22.0 L (25.0-35.0) pg MCHC 31.2 (31.0-37.0) g/dL RDW 14.9 (11.5-15.5) % Plt Count 222 (150-450) k/uL MPV 8.3 Neutrophils % 55 % Lymphocytes % 31 % Monocytes % 6 % Eosinophils % 4 % Basophils % 0 % Neutrophils # 4.7 (1.3-7.7) k/uL Lymphocytes # 2.7 (1.0-4.8) k/uL Monocytes # 0.5 (0-1.0) k/uL Eosinophils # 0.4 (0-0.7) k/uL Basophils # 0.0 (0-0.2) k/uL Hypochromasia Slight Microcytosis Moderate PT 10.5 (10.0-12.5) sec INR 1.0 (<1.2) APTT 24.1 (22.0-30.0) sec Sodium 140 (137-145) mmol/L Potassium 4.2 (3.5-5.1) mmol/L Chloride 102 (98-107) mmol/L Carbon Dioxide 28 (22-30) mmol/L Anion Gap 10 mmol/L BUN 22 H (9-20) mg/dL Creatinine 1.33 H (0.66-1.25) mg/dL Est GFR (CKD-EPI)AfAm 63 (>60 ml/min/1.73 sqM) Est GFR (CKD-EPI)NonAf 55 (>60 ml/min/1.73 sqM) Glucose 210 H (74-99) mg/dL Plasma Lactic Acid Charles (0.7-2.0) mmol/L Calcium 9.6 (8.4-10.2) mg/dL Total Bilirubin 0.5 (0.2-1.3) mg/dL AST 26 (17-59) U/L ALT 39 (4-49) U/L Alkaline Phosphatase 78 (38-126) U/L Total Protein 7.2 (6.3-8.2) g/dL Albumin 4.3 (3.5-5.0) g/dL Amylase 243 H (30-110) U/L Lipase 4037 H (23-300) U/L Urine Color Urine Appearance (Clear) Urine pH (5.0-8.0) Ur Specific [place] (1.001-1.035) Urine Protein (Negative) Urine Glucose (UA) (Negative) Urine Ketones (Negative) Urine Blood (Negative) Urine Nitrite (Negative) Urine Bilirubin (Negative) Urine Urobilinogen (<2.0) mg/dL Ur Leukocyte Esterase (Negative) Stool Occult Blood (Negative) Blood Type Blood Type Confirm Blood Type Recheck Bld Type Recheck Status Antibody Screen Spec Expiration Date 02/25/24 02/25/24 02/25/24 Range/Units 10:53 10:53 10:53 WBC (3.8-10.6) k/uL RBC (4.30-5.90) m/uL Hgb (13.0-17.5) gm/dL Hct (39.0-53.0) % MCV (80.0-100.0) fL MCH (25.0-35.0) pg MCHC (31.0-37.0) g/dL RDW (11.5-15.5) % Plt Count (150-450) k/uL MPV Neutrophils % % Lymphocytes % % Monocytes % % Eosinophils % % Basophils % % Neutrophils # (1.3-7.7) k/uL Lymphocytes # (1.0-4.8) k/uL Monocytes # (0-1.0) k/uL Eosinophils # (0-0.7) k/uL Basophils # (0-0.2) k/uL Hypochromasia Microcytosis PT (10.0-12.5) sec INR (<1.2) APTT (22.0-30.0) sec Sodium (137-145) mmol/L Potassium (3.5-5.1) mmol/L Chloride (98-107) mmol/L Carbon Dioxide (22-30) mmol/L Anion Gap mmol/L BUN (9-20) mg/dL Creatinine (0.66-1.25) mg/dL Est GFR (CKD-EPI)AfAm (>60 ml/min/1.73 sqM) Est GFR (CKD-EPI)NonAf (>60 ml/min/1.73 sqM) Glucose (74-99) mg/dL Plasma Lactic Acid Charles 1.3 (0.7-2.0) mmol/L Calcium (8.4-10.2) mg/dL Total Bilirubin (0.2-1.3) mg/dL AST (17-59) U/L ALT (4-49) U/L Alkaline Phosphatase (38-126) U/L Total Protein (6.3-8.2) g/dL Albumin (3.5-5.0) g/dL Amylase (30-110) U/L Lipase (23-300) U/L Urine Color Yellow Urine Appearance Clear (Clear) Urine pH 5.5 (5.0-8.0) Ur Specific [place] 1.016 (1.001-1.035) Urine Protein Negative (Negative) Urine Glucose (UA) 4+ H (Negative) Urine Ketones Negative (Negative) Urine Blood Negative (Negative) Urine Nitrite Negative (Negative) Urine Bilirubin Negative (Negative) Urine Urobilinogen <2.0 (<2.0) mg/dL Ur Leukocyte Esterase Negative (Negative) Stool Occult Blood Negative (Negative) Blood Type Blood Type Confirm Blood Type Recheck Bld Type Recheck Status Antibody Screen Spec Expiration Date 02/25/24 02/25/24 Range/Units 11:42 11:44 WBC (3.8-10.6) k/uL RBC (4.30-5.90) m/uL Hgb (13.0-17.5) gm/dL Hct (39.0-53.0) % MCV (80.0-100.0) fL MCH (25.0-35.0) pg MCHC (31.0-37.0) g/dL RDW (11.5-15.5) % Plt Count (150-450) k/uL MPV Neutrophils % % Lymphocytes % % Monocytes % % Eosinophils % % Basophils % % Neutrophils # (1.3-7.7) k/uL Lymphocytes # (1.0-4.8) k/uL Monocytes # (0-1.0) k/uL Eosinophils # (0-0.7) k/uL Basophils # (0-0.2) k/uL Hypochromasia Microcytosis PT (10.0-12.5) sec INR (<1.2) APTT (22.0-30.0) sec Sodium (137-145) mmol/L Potassium (3.5-5.1) mmol/L Chloride (98-107) mmol/L Carbon Dioxide (22-30) mmol/L Anion Gap mmol/L BUN (9-20) mg/dL Creatinine (0.66-1.25) mg/dL Est GFR (CKD-EPI)AfAm (>60 ml/min/1.73 sqM) Est GFR (CKD-EPI)NonAf (>60 ml/min/1.73 sqM) Glucose (74-99) mg/dL Plasma Lactic Acid Charles (0.7-2.0) mmol/L Calcium (8.4-10.2) mg/dL Total Bilirubin (0.2-1.3) mg/dL AST (17-59) U/L ALT (4-49) U/L Alkaline Phosphatase (38-126) U/L Total Protein (6.3-8.2) g/dL Albumin (3.5-5.0) g/dL Amylase (30-110) U/L Lipase (23-300) U/L Urine Color Urine Appearance (Clear) Urine pH (5.0-8.0) Ur Specific [place] (1.001-1.035) Urine Protein (Negative) Urine Glucose (UA) (Negative) Urine Ketones (Negative) Urine Blood (Negative) Urine Nitrite (Negative) Urine Bilirubin (Negative) Urine Urobilinogen (<2.0) mg/dL Ur Leukocyte Esterase (Negative) Stool Occult Blood (Negative) Blood Type B Positive Blood Type Confirm B Positive Blood Type Recheck No Previous Record Bld Type Recheck Status CABO Indicated Antibody Screen NEGATIVE Spec Expiration Date 02/28/20242341 - EKG Data -: EKG Interpreted by Me EKG Comments: 12-lead Electrocardiogram Interpretation Note EKG was reviewed and interpreted by myself. 12-lead ECG performed at 1110 is interpreted by me as revealing normal sinus rhythm at a rate of 67 beats per minute. [place] is normal. IA interval is 181 ms, QRS duration is 97 ms, QTc is 407 ms.. There were no ST or T wave abnormalities to suggest myocardial ischemia or injury. R wave progression across the precordium was satisfactory. By my interpretation this EKG is non-diagnostic for acute ischemia. Disposition Clinical Impression: Pancreatitis Disposition: ADMITTED IP TO THIS HOSP Condition: Stable Referrals: Zuhair Harding MD [Primary Care Provider] - 1-2 days Time of Disposition: 14:45
[2024-02-25] MEDS: PANTOPRAZOLE 40 MG/10 ML VIAL IVP STA (11:47)
[2024-02-25 12:01] LABS: Basophils % (A) 0 %; Eosinophils # (A) 0.4 k/uL (0-0.7); Eosinophils % (A) 4 %; HGB 14.4 gm/dL (13.0-17.5); Hypochromasia Slight; Lymphocytes # (A) 2.7 k/uL (1.0-4.8); Lymphocytes % (A) 31 %; MCHC 31.2 g/dL (31.0-37.0); MCV 70.5 fL (80.0-100.0); Mean Platelet Volume 8.3; Microcytosis Moderate; Monocytes # (A) 0.5 k/uL (0-1.0); Monocytes % (A) 6 %; Neutrophils # (A) 4.7 k/uL (1.3-7.7); Neutrophils % (A) 55 %; Platelet Count 222 k/uL (150-450); RBC 6.53 m/uL (4.30-5.90); RDW 14.9 % (11.5-15.5); WBC 8.6 k/uL (3.8-10.6)
[2024-02-25 12:06] LABS: Appearance,Urine Clear (Clear); Bilirubin,Urine Negative (Negative); Blood,Urine Negative (Negative); Color,Urine Yellow; Glucose,Urine (UA) 4+ (Negative); Ketones,Urine Negative (Negative); Leukocyte Esterase,Urine Negative (Negative); Nitrite,Urine Negative (Negative); PH, Urine 5.5 (5.0-8.0); Protein,Urine Negative (Negative); Specific Gravity,Urine 1.016 (1.001-1.035); Urobilinogen,Urine <2.0 mg/dL (<2.0)
[2024-02-25 12:09] LABS: Partial Thromboplastin Time 24.1 sec (22.0-30.0); Prothrombin Time 10.5 sec (10.0-12.5)
[2024-02-25 12:18] LABS: ALT 39 U/L (4-49); AST 26 U/L (17-59); African American GFR (CKD) 63 (>60 ml/min/1.73 sqM); Albumin 4.3 g/dL (3.5-5.0); Alkaline Phosphatase 78 U/L (38-126); Amylase 243 U/L (30-110); Anion Gap 10 mmol/L; Blood Urea Nitrogen 22 mg/dL (9-20); Calcium 9.6 mg/dL (8.4-10.2); Carbon Dioxide 28 mmol/L (22-30); Chloride 102 mmol/L (98-107); Glucose 210 mg/dL (74-99); Non-African American GFR(CKD) 55 (>60 ml/min/1.73 sqM); Potassium 4.2 mmol/L (3.5-5.1); Sodium 140 mmol/L (137-145); Total Bilirubin 0.5 mg/dL (0.2-1.3); Total Protein 7.2 g/dL (6.3-8.2)
[2024-02-25 12:51] LABS: Lipase 4037 U/L (23-300)
--- NOTE | 2024-02-25 13:59 | CT ---
EXAMINATION TYPE: CT angio abdomen pelvis CT DLP: 2178.7 mGycm, Automated exposure control for dose reduction was used. DATE OF EXAM: 02/25/2024 1:32 PM COMPARISON: None CLINICAL INDICATION:Male, 68 years old with history of GI bleed protocol; blood in stool TECHNIQUE: Multiple thin slice sub-millimeter images were obtained through abdomen and pelvis before and after the uneventful administration of 100 cc of Isovue-370 intravenously. 3-D reconstructed imag es and maximum intensity projection images were obtained of the abdomen and pelvis. FINDINGS: CTA Abdomen and pelvis: The abdominal aorta does not demonstrate aneurysmal dilatation. Atherosclero tic plaquing is identified within the abdominal aorta. The origins of the superior mesenteric artery , renal arteries, inferior mesenteric artery, and celiac axis are patent. Mild narrowing at the origi n of the SMA and celiac axis secondary to calcified and noncalcified plaque. The iliac vessels are n ormal in morphology. Atherosclerotic plaquing with some mural thrombus formation is identified in th e common iliac arteries. Moderate to high-grade stenosis involving the proximal right superficial fem oral artery secondary to calcified and noncalcified plaque. Mild to moderate stenosis involving the l eft superficial femoral artery secondary to calcified and noncalcified plaque. VISCERA: The liver, spleen, adrenal glands, kidneys, pancreas, and gallbladder are not optimally enha nced due the arterial phase utilized. LIVER: Unremarkable GALLBLADDER AND BILE DUCTS: Gallbladder is surgically absent. No biliary ductal dilatation. PANCREAS: Unremarkable. SPLEEN: Unremarkable. ADRENAL GLANDS: Unremarkable. KIDNEYS AND URETERS: No evidence of hydronephrosis or renal calculus. The kidneys enhance symmetrical ly. Bilateral renal cysts with largest measuring from the inferior pole of the right kidney measuring 2.1 cm. PELVIS BLADDER: Left posterior urinary bladder diverticulum. REPRODUCTIVE: Enlarged prostate gland measuring 6.1 cm in transverse dimension which indents upon the bladder base. There is increased enhancement of the medial lobe of the prostate gland which indents upon the bladder base. ABDOMEN & PELVIS STOMACH AND BOWEL: Stomach and duodenum are unremarkable. No focal bowel wall thickening or surroundi ng inflammatory changes. Distal colonic diverticulosis without evidence for acute diverticulitis. The appendix is within normal limits. Mild colonic stool burden. Scattered regions of hyperdense stool t hroughout the colon on the noncontrast imaging which limits evaluation. No evidence of bowel obstruct ion. PERITONEUM: No evidence of pneumoperitoneum or free fluid. MUSCULOSKELETAL: No acute osseous abnormalities. Degenerative changes of the right SI joint with ante rior bridging. LYMPH NODES: No gross evidence for lymphadenopathy. SOFT TISSUE/ABDOMINAL WALL: Small fat filled umbilical hernia. Moderate size right inguinal hernia co ntaining fat and minimal portion of the urinary bladder. Tiny left fat filled inguinal hernia. LOWER CHEST: Coronary artery calcifications. Dependent subsegmental atelectasis of the bilateral lowe r lobes. Paraseptal emphysematous change. IMPRESSION: 1. Distal colonic diverticulosis without evidence for acute diverticulitis. Extensive hyperdense sto ol throughout the colon on noncontrast imaging which essentially makes exam nondiagnostic for active GI bleed. 2. Prostatomegaly with focal increased enhancement of the medial lobe which indents upon the bladder base. Correlation with PSA values is recommended. 3. Bilateral fat filled inguinal hernias with right greater than left. The urinary bladder protrudes into the opening of the right inguinal hernia. Additionally left posterior urinary bladder diverticul um. 3. Moderate to high-grade stenosis involving the right superficial femoral artery proximally. Mild-to -moderate stenosis involving the left superficial femoral artery proximally. [facility], , 02/25/2024 1:57 PM
[2024-02-25] MEDS ORDERED: NALOXONE 0.4 MG/ML 1 ML VIAL IV PRN (14:51)
[2024-02-25] MEDS ORDERED: ONDANSETRON 4 MG/2 ML VIAL IVP PRN (14:51)
[2024-02-25] MEDS: SODIUM CHLORIDE 0.9% 1,000 ML IV STA ×2 (15:27)
[2024-02-25] MEDS: LOSARTAN 50 MG TAB PO SCH (20:09)
[2024-02-25] MEDS: ATORVASTATIN 20 MG TAB PO SCH (20:09)
[2024-02-25] MEDS: ACETAMINOPHEN TAB 325 MG TAB PO PRN (20:32)
--- NOTE | 2024-02-25 22:11 | HP ---
HISTORY AND PHYSICAL CHIEF COMPLAINT: Abdominal pain. HISTORY OF PRESENT ILLNESS: This is a 68-year-old gentleman, who presented to the emergency room with epigastric pain. He has been having some abdominal pain of late. In the emergency room, he had an elevated lipase. He was dehydrated. He was admitted. REVIEW OF SYSTEMS: He had no fever, chills, jaundice, etc. Past medical history, family history, personal and social histories are otherwise unremarkable. ALLERGIES: He is allergic to DOLORES inhibitors. MEDICATIONS: He does have hypertension and is controlled with amlodipine. He is also on, 1. Pantoprazole. 2. Flomax. 3. Pepcid. 4. Clopidogrel. 5. Metoprolol. 6. Hydrochlorothiazide. 7. Losartan. 8. Rosuvastatin. The remainder of his history is unremarkable. PHYSICAL EXAMINATION: VITAL SIGNS: Blood pressure is 120/62 with a pulse of 97, respirations of 36, and he is afebrile. GENERAL: He appeared to be very uncomfortable. He was dehydrated. HEAD, EARS, EYES, NOSE, MOUTH AND THROAT: Normal except for dry mucous membranes. CHEST: Clear. CARDIAC: Normal. He was tender over the epigastrium. IMPRESSION: 1. Pancreatitis. 2. History of hypertension. 3. History of atherosclerotic cardiovascular disease with cerebrovascular accident. PLAN: 1. Bed rest. 2. IV fluids. 3. Antiemetics. 4. Analgesics. COLTON / MELVIN: [id number] /
[2024-02-26 08:38] LABS: HCT 46.2 % (39.6-50.0); MCHC 30.3 g/dL (32.0-37.0); MCV 69.4 FL (80.0-97.0); Mean Platelet Volume 10.4 FL (9.5-12.2); NRBC Per 100 WBC 0 X 10*3/uL (0.00-0.01); Platelet Count 188 X 10*3/uL (140-440); RBC 6.66 X 10*6/uL (4.40-5.60); RDW 17.3 % (11.5-14.5); WBC 10.08 X 10*3/uL (4.50-10.00)
[2024-02-26 08:59] LABS: BUN/Creat Ratio 15.77 Ratio (12.00-20.00); Blood Urea Nitrogen 20.5 mg/dL (9.0-27.0); Glucose 220 mg/dL (70-110)
[2024-02-26 09:00] LABS: ALT 34 U/L (10-49); AST 19 U/L (14-35); Albumin 4.1 g/dL (3.8-4.9); Albumin/Globulin Ratio 1.41 Ratio (1.60-3.17); Alkaline Phosphatase 80 U/L (41-126); Calcium 9.3 mg/dL (8.7-10.3); Carbon Dioxide 23.9 mmol/L (21.6-31.8); Chloride 103 mmol/L (96-109); Globulin 2.9 g/dL (1.6-3.3); Potassium 3.9 mmol/L (3.5-5.5); Sodium 139 mmol/L (135-145); Total Bilirubin 0.3 mg/dL (0.3-1.2)
[2024-02-26] MEDS: hydroCHLOROthiazide 12.5 MG CAP PO SCH (09:23)
[2024-02-26] MEDS: CLOPIDOGREL 75 MG TAB PO SCH (09:23)
[2024-02-26] MEDS: METOPROLOL SUCCINATE (ER) 100 MG TAB.ER.24H PO SCH (09:23)
[2024-02-26] MEDS: amLODIPine 10 MG TAB PO SCH (09:23)
[2024-02-26] MEDS: ASPIRIN 81 MG PO SCH (09:23)
[2024-02-26 09:56] LABS: Basophils # (A) 0.02 X 10*3/uL (0.00-0.10); Basophils % (A) 0.2 %; Eosinophils # (A) 0.41 X 10*3/uL (0.04-0.35); Eosinophils % (A) 4.1 %; Lymphocytes # (A) 2.75 X 10*3/uL (0.90-5.00); Lymphocytes % (A) 27.3 %; Microcytosis (M) 2+; Monocytes # (A) 0.76 X 10*3/uL (0.20-1.00); Monocytes % (A) 7.5 %; Neutrophils # (A) 6.12 X 10*3/uL (1.80-7.70); Neutrophils % (A) 60.7 %
[2024-02-26] MEDS: PANTOPRAZOLE 40 MG/10 ML VIAL IV SCH (11:57)
[2024-02-26] MEDS: traZODone HCL 100 MG TAB PO PRN (20:58)
[2024-02-27 03:25] LABS: Chol/HDL Ratio 2.18 Ratio; LDL Cholesterol,Calculated 18.2 mg/dL (0.0-131.0)
[2024-02-27 03:35] LABS: PSA Annual Screen 1.69 ng/mL (0.000-4.000)
--- NOTE | 2024-02-27 04:32 | PN ---
PROGRESS NOTE DATE OF SERVICE: 02/26/2024 CHIEF COMPLAINT: Acute pancreatitis. HISTORY OF PRESENT ILLNESS: This gentleman is doing a little bit better. His pain has subsided. He has not had vomiting. He has had no fever or chills. PHYSICAL EXAMINATION: VITAL SIGNS: Normal. CHEST: Clear. CARDIAC: Normal. GI: He is slightly tender over the epigastrium. Abdomen is slightly distended. IMPRESSION: Acute pancreatitis. PLAN: 1. Continue with IV fluids. 2. At the present time, he is not hungry and we will start feeding him tomorrow. 3. Lipid profile. MMODL / IJN: [id number] /
[2024-02-27] MEDS: PANTOPRAZOLE 40 MG TABLET PO SCH (05:48)
[2024-02-27] MEDS ORDERED: NON FORMULARY DRUG (Pantoprazole Sodium [Protonix] 20 MG Tablet) PO SCH (09:00)
[2024-02-27] MEDS: FAMOTIDINE 20 MG TAB PO SCH (09:19)
--- NOTE | 2024-02-27 13:12 | P.GSCN ---
History of Present Illness Consult date: 02/27/24 Reason for Consult: PVOD right femoral artery Requesting physician: Zuhair Harding History of present illness: Is a pleasant 68-year-old -[place] male who presented to the emergency department with complaints of dark stools. Apparently patient has been taking Pepto-Bismol regularly. He denies any abdominal pain, no nausea or vomiting. He was admitted with He had a CT angiogram of the abdomen pelvis with pancreatitis with noted elevated amylase and lipase. Hultiple findings including moderate to high-grade stenosis involving right SFA and left SFA. I believe vascular surgery was consulted for the above findings however consulted state PVOD. Patient denies any lower extremity pain. He denies any pain with ambulation. States that he has not been walking as much secondary to a recent stroke he underwent about 2 months ago. He is unclear what the cause of his stroke was from. States that he has just generalized weakness not 1 side greater than the other. He was a previous smoker quit about 10 years ago. Past medical history includes hypertension, BPH, and CVA. Denies any diabetes. Review of Systems A 14 point review systems was completed all pertinent positives and negatives as stated in the HPI. Past Medical History Past Medical History: CVA/TIA, Hypertension Additional Past Medical History / Comment(s): uti, History of Any Multi-Drug Resistant Organisms: None Reported Past Surgical History: Cholecystectomy, Heart Catheterization Past Anesthesia/Blood Transfusion Reactions: No Reported Reaction Additional Past Anesthesia/Blood Transfusion Reaction / Comm: pt stated he has never received blood Past Psychological History: No Psychological Hx Reported Smoking Status: Former smoker Past Alcohol Use History: None Reported Additional Past Alcohol Use History / Comment(s): started smoking in 1971 and quit 2013 smoked 1ppd Past Drug Use History: None Reported - Past Family History Mother Family Medical History: Cancer, CVA/TIA Additional Family Medical History / Comment(s): breast cancer Father Family Medical History: Dialysis, Renal Disease Medications and Allergies Home Medications Medication Instructions Recorded Confirmed Type Famotidine [Pepcid] 20 mg PO DAILY 03/26/18 02/25/24 History Clopidogrel [Plavix] 75 mg PO DAILY #90 tab 03/29/18 02/25/24 Rx Aspirin EC [Ecotrin Low Dose] 81 mg PO DAILY 02/12/24 02/25/24 History Clobetasol Propionate [Temovate 1 applic TOPICAL BID 02/12/24 02/25/24 History 0.05% Oint] Losartan [Cozaar] 50 mg PO BID 02/12/24 02/25/24 History Metoprolol Succinate (ER) [Toprol 100 mg PO DAILY 02/12/24 02/25/24 History Xl] Rosuvastatin [Crestor] 10 mg PO HS 02/12/24 02/25/24 History amLODIPine [Norvasc] 10 mg PO DAILY 02/12/24 02/25/24 History hydroCHLOROthiazide [Hydrodiuril] 12.5 mg PO DAILY 02/12/24 02/25/24 History Nitrofurantoin Monohyd/M-Cryst 100 mg PO BID 02/25/24 02/25/24 History [Macrobid] Nitroglycerin Sl Tabs [Nitrostat] 0.4 mg SL Q5M PRN 02/25/24 02/25/24 History Pantoprazole Sodium [Protonix] 20 mg PO DAILY 02/25/24 02/25/24 History Allergies Allergy/AdvReac Type Severity Reaction Status Date / Time No Known Allergies Allergy Verified 02/25/24 11:07 Surgical - Exam Vital Signs Temp Pulse Resp BP Pulse Ox 97.9 F 72 22 122/83 98 02/25/24 10:25 02/25/24 10:25 02/25/24 10:25 02/25/24 10:25 02/25/24 10:25 General appearance: The patient is alert, oriented, appears in no acute distress . HET: Head is normocephalic and atraumatic. Pupils are equal and reactive. Neck: Supple. Heart: Regular. Lungs: Equal expansion, normal respiratory effort. Abdomen: Soft, nontender, nondistended. Extremities: Normal skin color and turgor. Bilateral palpable femoral pulses. Nonpalpable right PT and DP pulse. Left lower extremity with palpable PT and DP pulse. Right lower extremity with popliteal, PT and DP Doppler signal. Neurological: Alert and oriented. Results - Labs 02/26/24 04:04 02/26/24 04:04 Abnormal Lab Results - Last 24 Hours (Table) 02/26/24 02/26/24 02/26/24 Range/Units 04:04 20:12 20:12 Eosinophils # 0.41 H (0.04-0.35) X 10*3/uL Microcytosis (manual) 2+ A HDL Cholesterol 32.60 L (40.00-60.00) mg/dL Lipase 1471 H (14-60) U/L Diabetes panel 02/26/24 Range/Units 20:12 Triglycerides 101.00 (0.00-149.00) mg/dL HDL Cholesterol 32.60 L (40.00-60.00) mg/dL - Imaging Comments: CTA abdomen pelvis reports distal colonic diverticulosis without evidence for acute diverticulitis. Extensive hyperdense stool throughout the colon on noncontrasted imaging which essentially makes exam nondiagnostic for active GI bleed. Prostamegaly with focal increased enhancement of the medial lobe which indents upon the bladder base. Correlation with PSA values recommended. Bila teral fat filled inguinal hernia with right greater than left. Urinary bladder protrudes into the opening of the right inguinal hernia. Additionally left posterior urinary bladder diverticulum. Moderate to high-grade stenosis involving the right SFA artery proximally. Mild to moderate stenosis involving the left SFA proximally. Assessment and Plan Assessment: 1. Pancreatitis 2. Asymptomatic chronic peripheral vascular disease 3. Reported black stools, however patient had been taking Pepto-Bismol 4. Constipation 5. Bilateral inguinal hernias 6. Recent CVA Plan: CTA abdomen pelvis imaging reviewed. Patient is asymptomatic. All chronic disease not requiring any vascular surgical intervention at this time. Discu ssed with patient he certainly can follow-up with vascular surgery if he becomes symptomatic. Office card given to patient. Continue with rest of medical management per primary medical team. Thank you for this consultation, we will sign off at this time. The impression and plan of care has been dictated as directed. I performed a history and examination of this patient, discussed the same with the dictator. I agree with the dictator's note ,documented as a scribe. Any additional findings or plans will be noted.
[2024-02-27] MEDS: bisacodyL 5 MG TABLET.DR PO PRN (13:58)
[2024-02-27 16:34] LABS: Amylase 297 U/L (30-110)
[2024-02-27 17:23] LABS: Lipase 5536 U/L (23-300)
--- NOTE | 2024-02-28 01:14 | PN ---
PROGRESS NOTE DATE OF SERVICE: 02/27/2024 CHIEF COMPLAINT: Pancreatitis. HISTORY OF PRESENT ILLNESS: Apparently, this gentleman is doing about the same. Enzymes remained quite high. His abdominal pain is not significant and he is eating. PHYSICAL EXAMINATION: CHEST: Clear. CARDIAC: Normal. ABDOMEN: Slightly protuberant and soft. IMPRESSION: 1. Acute pancreatitis. 2. Constipation. PLAN: Repeat laboratory studies and continue to follow lipase and amylase. MMODL / IJN: [id number] /
[2024-02-28 12:20] LABS: Basophils % (A) 0 %; Eosinophils # (A) 0.4 k/uL (0-0.7); Eosinophils % (A) 5 %; HCT 45.7 % (39.0-53.0); Hypochromasia Moderate; Lymphocytes # (A) 2.5 k/uL (1.0-4.8); Lymphocytes % (A) 29 %; MCH 21.8 pg (25.0-35.0); MCHC 30.6 g/dL (31.0-37.0); MCV 71.2 fL (80.0-100.0); Mean Platelet Volume 6.8; Microcytosis Moderate; Monocytes # (A) 0.4 k/uL (0-1.0); Monocytes % (A) 4 %; Neutrophils # (A) 5.2 k/uL (1.3-7.7); Neutrophils % (A) 59 %; Platelet Count 167 k/uL (150-450); RBC 6.42 m/uL (4.30-5.90); RDW 15.1 % (11.5-15.5); WBC 8.8 k/uL (3.8-10.6)
[2024-02-28 12:46] VITALS: BMI 26.3
[2024-02-28 12:50] LABS: ALT 30 U/L (4-49); AST 20 U/L (17-59); African American GFR (CKD) 64 (>60 ml/min/1.73 sqM); Albumin 4.4 g/dL (3.5-5.0); Albumin/Globulin Ratio 1.5; Alkaline Phosphatase 72 U/L (38-126); Amylase 253 U/L (30-110); Anion Gap 8 mmol/L; Blood Urea Nitrogen 30 mg/dL (9-20); Calcium 9.6 mg/dL (8.4-10.2); Carbon Dioxide 26 mmol/L (22-30); Chloride 104 mmol/L (98-107); Glucose 218 mg/dL (74-99); Magnesium 2.2 mg/dL (1.6-2.3); Non-African American GFR(CKD) 55 (>60 ml/min/1.73 sqM); Potassium 4.4 mmol/L (3.5-5.1); Sodium 138 mmol/L (137-145); Total Bilirubin 0.7 mg/dL (0.2-1.3); Total Protein 7.4 g/dL (6.3-8.2)
[2024-02-28 13:20] LABS: Lipase 4732 U/L (23-300)
[2024-02-28] MEDS: LACTULOSE 20 GM/30 ML CUP PO SCH (14:10)
[2024-02-28 19:40] VITALS: BP 118/81; PULSE 79; TEMP 98
[2024-02-28 20:22] VITALS: RESP 18
--- NOTE | 2024-03-02 15:18 | P.DS ---
Providers Date of admission: 02/27/24 15:03 Expected date of discharge: 02/28/24 Attending physician: Zuhair Harding Consults: 02/26/24 16:58 Consult Physician Routine Consulting Provider: David Chase Consult Reason/Comments: PVOD right femorl a. Do you want consulting provider notified?: Yes, Notify in am Primary care physician: Zuhair Harding Hospital Course: Final diagnosis Acute pancreatitis with elevated amylase/lipase History of CVA/TIA Hypertension history Former smoker GI prophylaxis DVT prophylaxis Full code Discharge disposition Patient is being discharged in a stable condition with guarded prognosis to home. Patient will follow-up with Dr. Harding in the outpatient setting upon discharge. Patient is to continue with current medications and outpatient follow-up with vascular surgery as scheduled. Total time taken is greater than 35 minutes. Hospital course This is a 68-year-old male who was recently admitted with elevated amylase and lipase acute pancreatitis with constipation being closely monitored. Patient was continued on hydration although continued to have a diet and was reporting no significant abdominal pain although was concerned as patient was constipated and had not had a bowel movement in a few days. Patient tolerating diet with no reports of nausea or vomiting or abdominal pain after. Patient was given la ctulose for bowel movements and was instructed to follow-up with primary care provider in the outpatient setting. Patient was evaluated by vascular surgery during hospitalization for PVOD of the right femur artery and was instructed there is no plans for surgical intervention at this time and may follow-up in the outpatient setting. Patient's blood pressures were on the lower side and recommend to stop hydrochlorothiazide for now and continue other current regimen with outpatient follow-up with primary care provider in the next 1 week. Patient was able to have a bowel movement and was discharged home. Recommend follow-up labs in the outpatient setting to monitor amylase and lipase along with CMP in the next 2 to 3 days. Currently no reports of chest pain, shortness of breath, or palpitations. Patient is afebrile. No reports of nausea or vomiting and patient is tolerating diet. Patient will be discharged home today. Physical exam: Gen: This is a 68-year-old male who is awake, alert and oriented x 3, well- developed, elderly appearing HEENT: Head is atraumatic, normocephalic. Pupils equal, round. Sclerae is anicteric. NECK: Supple. No JVD. No lymphadenopathy. No thyromegaly. LUNGS: Clear to auscultation. No wheezes or rhonchi. No intercostal retractions. HEART: Regular rate and rhythm. No murmur. ABDOMEN: Soft. Nontender bowel sounds are present. No masses. No tenderness. EXTREMITIES: No pedal edema. No calf tenderness. NEUROLOGICAL: Patient is awake, alert and oriented x3. Cranial nerves 2 through 12 are grossly intact. Please refer to medication reconciliation sheet for a list of medications. The impression and plan of care has been dictated by Zuly Rouse, Nurse Practitioner as directed. Dr. Chon MD I have performed a history and examination and MDM of this patient, discussed the same with the dictator, and agree with the dictator's assessment and plan as written ,documented as a scribe. Based on total visit time, I have performed more than 50% of the visit. Patient Condition at Discharge: Stable Plan - Discharge Summary Discharge Rx Participant: No New Discharge Prescriptions: New Lactulose [Cephulac] 20 gm PO TID PRN #240 ml PRN Reason: Constipation Acetaminophen Tab [Tylenol] 650 mg PO Q6HR PRN tab PRN Reason: Mild Pain Or Fever > 100.5 Continue Famotidine [Pepcid] 20 mg PO DAILY Clopidogrel [Plavix] 75 mg PO DAILY #90 tab Metoprolol Succinate (ER) [Toprol XL] 100 mg PO DAILY Losartan [Cozaar] 50 mg PO BID Clobetasol Propionate [Temovate 0.05% Oint] 1 applic TOPICAL BID Rosuvastatin [Crestor] 10 mg PO HS Aspirin EC [Ecotrin Low Dose] 81 mg PO DAILY Nitroglycerin Sl Tabs [Nitrostat] 0.4 mg SL Q5M PRN PRN Reason: Chest Pain amLODIPine [Norvasc] 10 mg PO DAILY Nitrofurantoin Monohyd/M-Cryst [Macrobid] 100 mg PO BID Pantoprazole Sodium [Protonix] 20 mg PO DAILY Discontinued hydroCHLOROthiazide [Hydrodiuril] 12.5 mg PO DAILY Discharge Medication List Famotidine [Pepcid] 20 mg PO DAILY 03/26/18 [History] Clopidogrel [Plavix] 75 mg PO DAILY #90 tab 03/29/18 [Rx] Aspirin EC [Ecotrin Low Dose] 81 mg PO DAILY 02/12/24 [History] Clobetasol Propionate [Temovate 0.05% Oint] 1 applic TOPICAL BID 02/12/24 [History] Losartan [Cozaar] 50 mg PO BID 02/12/24 [History] Metoprolol Succinate (ER) [Toprol XL] 100 mg PO DAILY 02/12/24 [History] Rosuvastatin [Crestor] 10 mg PO HS 02/12/24 [History] amLODIPine [Norvasc] 10 mg PO DAILY 02/12/24 [History] Nitrofurantoin Monohyd/M-Cryst [Macrobid] 100 mg PO BID 02/25/24 [History] Nitroglycerin Sl Tabs [Nitrostat] 0.4 mg SL Q5M PRN 02/25/24 [History] Pantoprazole Sodium [Protonix] 20 mg PO DAILY 02/25/24 [History] Acetaminophen Tab [Tylenol] 650 mg PO Q6HR PRN tab 02/28/24 [Rx] Lactulose [Cephulac] 20 gm PO TID PRN #240 ml 02/28/24 [Rx] Follow up Appointment(s)/Referral(s): Zuhair Harding MD [Primary Care Provider] - 1-2 days Nina Sanchez MD [STAFF PHYSICIAN] - 2 Weeks Ambulatory/Diagnostic Orders: Comprehensive Metabolic Panel [LAB.AMB] Time Frame: 3 Days, Location: None Selected Activity/Diet/Wound Care/Special Instructions: Activity limited until follow-up Follow-up with primary care provider on discharge Follow-up with GI outpatient Recommend to continue with a clear liquid diet Discharge Disposition: HOME SELF-CARE
== END 2024-02-28 21:16 | disposition home or self-care (01) | DRG 440 ==
LOC: EC 10:24 → 6NMEDSUR 14:52 → OBSVTOIN 02-27 15:03
PROVIDERS: ADMIT Family Medicine; ATTEND Family Medicine
DX: K85.90 Acute pancreatitis without necrosis or infection, unspecified (principal); I70.223 Atherosclerosis of native arteries of extremities with rest pain, bilateral legs; I10 Essential (primary) hypertension; E86.0 Dehydration; K59.00 Constipation, unspecified; N40.0 Benign prostatic hyperplasia without lower urinary tract symptoms; I25.10 Atherosclerotic heart disease of native coronary artery without angina pectoris; K40.20 Bilateral inguinal hernia, without obstruction or gangrene, not specified as recurrent; Z86.73 Personal history of transient ischemic attack (TIA), and cerebral infarction without residual deficits; Z87.891 Personal history of nicotine dependence; Z90.49 Acquired absence of other specified parts of digestive tract; Z79.02 Long term (current) use of antithrombotics/antiplatelets; Z79.82 Long term (current) use of aspirin; Z79.899 Other long term (current) drug therapy; Z88.8 Allergy status to other drugs, medicaments and biological substances
CPT/HCPCS: 36415; 74174; 80053; 80061; 81003; 82150; 82272; 83036; 83605; 83690; 83735; 85025; 85610; 85730; 86850; 86900; 86901; 93005; 96374; 99285

== ENCOUNTER → 2024-03-30 | Outpatient (CLI) | payer MEDICARE ==
--- NOTE | 2024-03-30 20:41 | MR ---
EXAMINATION TYPE: MR pancreas wo/w con DATE OF EXAM: 03/30/2024 7:23 PM INDICATION: Patient age:Male; 68 years old; Reason for study: R10.13 EPI PAIN R53.83 FATIGUE R63.0 LOSS OF APPET; PHH. COMPARISON: CTA abdomen and pelvis 02/25/2024 TECHNIQUE: Multiplanar multi-sequence imaging was performed without and with IV contrast. The patien t was given 9 ccs of Gadavist intravenously and dynamic imaging was performed. Post IV contrast subtr action images were also submitted for review. FINDINGS: LOWER CHEST: No gross irregularity. ABDOMEN Liver: Unremarkable. Gallbladder and Bile ducts: Gallbladder is surgical absent. No biliary ductal dilatation. Pancreas: No pancreatic duct dilatation. Pancreas enhances homogeneously without focal lesion. No see rounding fluid collections. Somewhat prominent appearance of the tail the pancreas with surrounding f at stranding changes which is not significantly changed from prior exams. The pancreas demonstrates s omewhat heterogenous low T1 signal intensity. Mild somewhat restricted effusion most prominent within the pancreatic tail. Spleen: Unremarkable. Adrenal glands: Unremarkable. Kidneys: No hydronephrosis. Bilateral T2 hyperintense thin-walled cysts with largest measuring from t he inferior pole of the right kidney measuring up to 2.3 cm. No enhancing renal lesion identified. Stomach and Bowel: No evidence for bowel obstruction. Distal colonic diverticulosis. Peritoneum: No evidence of pneumoperitoneum, free fluid, or adenopathy. Vasculature: Unremarkable. No aortic aneurysm. Abdominal wall: Tiny fat filled umbilical hernia. Musculoskeletal: The osseous structures appear intact. IMPRESSION: 1. Prominent appearance of the pancreatic tail without discrete focal lesion. There is some minimal peripancreatic fat stranding without organized fluid collection or ductal dilatation. Findings raise the possibility of autoimmune pancreatitis versus other etiologies of chronic pancreatitis. 2. Colonic diverticulosis without evidence for acute diverticulitis. [facility], , 03/30/2024 8:38 PM
== END | disposition home or self-care (01) ==
LOC: RADMRIMAIN 18:09
PROVIDERS: ATTEND Family Medicine
DX: R53.83 Other fatigue (principal); R63.0 Anorexia; K57.90 Diverticulosis of intestine, part unspecified, without perforation or abscess without bleeding
CPT/HCPCS: 74183; A9585

== ENCOUNTER 2024-08-16 10:10 | Emergency (ER) | payer MEDICARE ==
[2024-08-16 11:41] LABS: Basophils % (A) 0 %; Eosinophils # (A) 0.3 k/uL (0-0.7); Eosinophils % (A) 2 %; HCT 45.7 % (39.0-53.0); HGB 14.1 gm/dL (13.0-17.5); Hypochromasia Slight; Lymphocytes # (A) 2.9 k/uL (1.0-4.8); Lymphocytes % (A) 19 %; MCHC 30.9 g/dL (31.0-37.0); MCV 71.1 fL (80.0-100.0); Mean Platelet Volume 8.9; Microcytosis Moderate; Monocytes # (A) 0.7 k/uL (0-1.0); Monocytes % (A) 5 %; Neutrophils # (A) 11.2 k/uL (1.3-7.7); Neutrophils % (A) 73 %; Platelet Count 170 k/uL (150-450); RBC 6.42 m/uL (4.30-5.90); RDW 15.5 % (11.5-15.5); WBC 15.3 k/uL (3.8-10.6)
[2024-08-16 11:53] LABS: ALT 20 U/L (4-49); AST 18 U/L (17-59); African American GFR (CKD) 67 (>60 ml/min/1.73 sqM); Alkaline Phosphatase 57 U/L (38-126); Anion Gap 10 mmol/L; Blood Urea Nitrogen 19 mg/dL (9-20); Calcium 9.3 mg/dL (8.4-10.2); Carbon Dioxide 26 mmol/L (22-30); Chloride 106 mmol/L (98-107); Glucose 72 mg/dL (74-99); Non-African American GFR(CKD) 58 (>60 ml/min/1.73 sqM); Potassium 4.1 mmol/L (3.5-5.1); Sodium 142 mmol/L (137-145); Total Bilirubin 0.9 mg/dL (0.2-1.3)
[2024-08-16 12:31] LABS: Amorphous Sediment,Urine Rare /hpf; Appearance,Urine Cloudy (Clear); Bacteria,Urine Moderate /hpf; Bilirubin,Urine Negative (Negative); Blood,Urine Small (Negative); Color,Urine Yellow; Glucose,Urine (UA) Negative (Negative); Ketones,Urine Negative (Negative); Leukocyte Esterase,Urine Large (Negative); Mucus,Urine Few /hpf; Nitrite,Urine Negative (Negative); Protein,Urine 1+ (Negative); RBC,Urine 6 /hpf (0-5); Specific Gravity,Urine 1.019 (1.001-1.035); Squamous Epithelial Cell,Urine 1 /hpf (0-4); WBC,Urine >182 /hpf (0-5)
--- NOTE | 2024-08-16 14:31 | ED ---
General Adult HPI - General Chief complaint: Weakness Stated complaint: Weakness Time Seen by Provider: 08/16/24 10:21 Source: patient Mode of arrival: wheelchair Limitations: no limitations - History of Present Illness Initial comments: Patient is a 68-year-old male who presents to the ER with his Gonzalo due to weakness for the last few days. He has also been having some discomfort when he urinates. Patient had a low-grade fever yesterday 99.4 and some chills. Per , patient is following up with Dr. Posadas regarding his recurrent UTIs. Veronika novoa denies any headaches, nausea, vomiting, diarrhea. - Related Data Home Medications Medication Instructions Recorded Confirmed Famotidine [Pepcid] 20 mg PO DAILY 03/26/18 02/25/24 Aspirin EC [Ecotrin Low Dose] 81 mg PO DAILY 02/12/24 02/25/24 Clobetasol Propionate [Temovate 1 applic TOPICAL BID 02/12/24 02/25/24 0.05% Oint] Losartan [Cozaar] 50 mg PO BID 02/12/24 02/25/24 Metoprolol Succinate (ER) [Toprol 100 mg PO DAILY 02/12/24 02/25/24 XL] Rosuvastatin [Crestor] 10 mg PO HS 02/12/24 02/25/24 amLODIPine [Norvasc] 10 mg PO DAILY 02/12/24 02/25/24 Nitrofurantoin Monohyd/M-Cryst 100 mg PO BID 02/25/24 02/25/24 [Macrobid] Nitroglycerin Sl Tabs [Nitrostat] 0.4 mg SL Q5M PRN 02/25/24 02/25/24 Pantoprazole Sodium [Protonix] 20 mg PO DAILY 02/25/24 02/25/24 Previous Rx's Medication Instructions Recorded Clopidogrel [Plavix] 75 mg PO DAILY #90 tab 03/29/18 Acetaminophen Tab [Tylenol] 650 mg PO Q6HR PRN tab 02/28/24 Lactulose [Cephulac] 20 gm PO TID PRN #240 ml 02/28/24 Nitrofurantoin Monohyd/M-Cryst 100 mg PO Q12HR 30 Days #60 cap 08/16/24 [Macrobid] Allergies Allergy/AdvReac Type Severity Reaction Status Date / Time No Known Allergies Allergy Verified 08/16/24 10:20 Review of Systems ROS Statement: Those systems with pertinent positive or pertinent negative responses have been documented in the HPI. ROS Other: All systems not noted in ROS Statement are negative. Constitutional: Reports: fever, chills Respiratory: Denies: cough, dyspnea Cardiovascular: Denies: chest pain, palpitations Endocrine: Reports: fatigue Gastrointestinal: Denies: abdominal pain, nausea, vomiting Genitourinary: Reports: urgency, dysuria Musculoskeletal: Denies: back pain Skin: Denies: rash, lesions Neurological: Denies: headache, weakness Past Medical History Past Medical History: CVA/TIA, GERD/Reflux, Hyperlipidemia, Hypertension Additional Past Medical History / Comment(s): uti, History of Any Multi-Drug Resistant Organisms: None Reported Past Surgical History: Cholecystectomy, Heart Catheterization Past Anesthesia/Blood Transfusion Reactions: No Reported Reaction Additional Past Anesthesia/Blood Transfusion Reaction / Comment(s): pt stated he has never received blood Past Psychological History: No Psychological Hx Reported Smoking Status: Former smoker Past Alcohol Use History: None Reported Past Drug Use History: None Reported - Past Family History Mother Family Medical History: Cancer, CVA/TIA Additional Family Medical History / Comment(s): breast cancer Father Family Medical History: Dialysis, Renal Disease General Exam Limitations: no limitations General appearance: alert, in no apparent distress Head exam: Absent: atraumatic, normocephalic Respiratory exam: Present: normal lung sounds bilaterally. Absent: respiratory distress, wheezes, rales, rhonchi Cardiovascular Exam: Present: regular rate, normal rhythm. Absent: rubs, gallop GI/Abdominal exam: Present: soft. Absent: distended, tenderness, guarding, rebound Back exam: Absent: tenderness, CVA tenderness (R), CVA tenderness (L) Neurological exam: Present: alert, oriented X3 Psychiatric exam: Present: normal affect, normal mood Skin exam: Present: warm, dry, intact Course Vital Signs 08/16/24 08/16/24 10:18 14:53 Temperature 98.6 F 98 F Pulse Rate 84 80 Respiratory 18 16 Rate Blood Pressure 102/71 165/100 O2 Sat by Pulse 96 96 Oximetry Medical Decision Making - Medical Decision Making Was pt. sent in by a medical professional or institution (, PA, MONITORING SPECIALIST, urgent care, hospital, or prison...) When possible be specific @ -No Did you speak to anyone other than the patient for history (EMS, parent, family, police, friend...)? What history was obtained from this source @ -No Did you review nursing and triage notes (agree or disagree)? Why? @ -I reviewed and agree with nursing and triage notes Were old charts reviewed (outside hosp., previous admission, EMS record, old EKG, old radiological studies, urgent care reports/EKG's, prison records)? Report findings @ -No old charts were reviewed Differential Diagnosis? @ -Chest pain, altered mental status, abdominal pain women, abdominal pain men, vaginal bleeding, weakness, fever, dyspnea, syncope, headache, dizziness, GI bleed, back pain, seizure, CVA, palpatations, mental health, musculoskeletal EKG interpreted by me (3pts min.). @ -As above X-rays interpreted by me (1pt min.). @ -None done CT interpreted by me (1pt min.). @ -None done U/S interpreted by me (1pt. min.). @ -None done What testing was considered but not performed or refused? (CT, X-rays, U/S, labs)? Why? @ -None What meds were considered but not given or refused? Why? @ -None Did you discuss the management of the patient with other professionals (professionals i.e. , PA, MONITORING SPECIALIST, lab, RT, psych nurse, social scientist, associate technician, teacher, human resources officer, case finisher)? Give summary @ -Case was discussed with ED attending physician Dr. Salcedo. Was smoking cessation discussed for >3mins.? @ -No Was critical care preformed (if so, how long)? @ -No Were there social determinants of health that impacted care today? How? (Homelessness, low income, unemployed, alcoholism, drug addiction, transportation, low edu. Level, literacy, decrease access to med. care, alf, rehab)? @ -No Was there de-escalation of care discussed even if they declined (Discuss DNR or withdrawal of care, Hospice)? DNR status @ -No What co-morbidities impacted this encounter? (DM, HTN, Smoking, COPD, CAD, Cancer, CVA, ARF, Chemo, Hep., AIDS, mental health diagnosis, sleep apnea, morbid obesity)? @ -None Was patient admitted / discharged? Hospital course, mention meds given and route, prescriptions, significant lab abnormalities, going to OR and other pertinent info. @ -Urinalysis was significant for UTI. Patient received 2 g of Rocephin in the ER. Patient will be discharged home with self-care and started on a course of antibiotics. Undiagnosed new problem with uncertain prognosis? @ -No Drug Therapy requiring intensive monitoring for toxicity (Heparin, Nitro, Insulin, Cardizem)? @ -No Were any procedures done? @ -No Diagnosis/symptom? @ -UTI Acute, or Chronic, or Acute on Chronic? @ -Default Uncomplicated (without systemic symptoms) or Complicated (systemic symptoms)? @ -Default Side effects of treatment? @ -No Exacerbation, Progression, or Severe Exacerbation? @ -No Poses a threat to life or bodily function? How? (Chest pain, [place], [place], pneumonia, PE, COPD, DKA, ARF, appy, cholecystitis, CVA, Diverticulitis, Homicidal, Suicidal, threat to staff... and all critical care pts) @ -No - Lab Data Result diagrams: 08/16/24 11:36 08/16/24 11:36 Lab Results 08/16/24 08/16/24 08/16/24 Range/Units 11:36 11:36 12:06 WBC 15.3 H (3.8-10.6) k/uL RBC 6.42 H (4.30-5.90) m/uL Hgb 14.1 (13.0-17.5) gm/dL Hct 45.7 (39.0-53.0) % MCV 71.1 L (80.0-100.0) fL MCH 22.0 L (25.0-35.0) pg MCHC 30.9 L (31.0-37.0) g/dL RDW 15.5 (11.5-15.5) % Plt Count 170 (150-450) k/uL MPV 8.9 Neutrophils % 73 % Lymphocytes % 19 % Monocytes % 5 % Eosinophils % 2 % Basophils % 0 % Neutrophils # 11.2 H (1.3-7.7) k/uL Lymphocytes # 2.9 (1.0-4.8) k/uL Monocytes # 0.7 (0-1.0) k/uL Eosinophils # 0.3 (0-0.7) k/uL Basophils # 0.0 (0-0.2) k/uL Hypochromasia Slight Microcytosis Moderate Sodium 142 (137-145) mmol/L Potassium 4.1 (3.5-5.1) mmol/L Chloride 106 (98-107) mmol/L Carbon Dioxide 26 (22-30) mmol/L Anion Gap 10 mmol/L BUN 19 (9-20) mg/dL Creatinine 1.26 H (0.66-1.25) mg/dL Est GFR (CKD-EPI)AfAm 67 (>60 ml/min/1.73 sqM) Est GFR (CKD-EPI)NonAf 58 (>60 ml/min/1.73 sqM) Glucose 72 L (74-99) mg/dL Calcium 9.3 (8.4-10.2) mg/dL Total Bilirubin 0.9 (0.2-1.3) mg/dL AST 18 (17-59) U/L ALT 20 (4-49) U/L Alkaline Phosphatase 57 (38-126) U/L Total Protein 7.0 (6.3-8.2) g/dL Albumin 4.0 (3.5-5.0) g/dL Urine Color Yellow Urine Appearance Cloudy (Clear) Urine pH 6.0 (5.0-8.0) Ur Specific [place] 1.019 (1.001-1.035) Urine Protein 1+ H (Negative) Urine Glucose (UA) Negative (Negative) Urine Ketones Negative (Negative) Urine Blood Small H (Negative) Urine Nitrite Negative (Negative) Urine Bilirubin Negative (Negative) Urine Urobilinogen 2.0 (<2.0) mg/dL Ur Leukocyte Esterase Large H (Negative) Urine RBC 6 H (0-5) /hpf Urine WBC >182 H (0-5) /hpf Urine WBC Clumps Occasional H (None) /hpf Ur Squamous Epith Cells 1 (0-4) /hpf Amorphous Sediment Rare H (None) /hpf Urine Bacteria Moderate H (None) /hpf Urine Mucus Few H (None) /hpf Disposition Clinical Impression: UTI (urinary tract infection) Disposition: HOME SELF-CARE Prescriptions: Nitrofurantoin Monohyd/M-Cryst [Macrobid] 100 mg PO Q12HR 30 Days #60 cap Is patient prescribed a controlled substance at d/c from ED?: No Referrals: Zuhair Harding MD [Primary Care Provider] - 1-2 days Sin Posadas MD [STAFF PHYSICIAN] - 09/03/24 Time of Disposition: 13:30
[2024-08-16] MEDS: cefTRIAXone IN SWFI 1,000 MG/10 ML SYRINGE IVP STA ×2 (14:45)
[2024-08-16 14:54] VITALS: BP 165/100; PULSE 80; RESP 16; TEMP 98
== END 2024-08-16 15:20 | disposition home or self-care (01) ==
LOC: EC 10:10
DX: N39.0 Urinary tract infection, site not specified (principal); Z87.891 Personal history of nicotine dependence
CPT/HCPCS: 99284; 96374; 36415; 80053; 85025; 81001; 87086; J0696

== ENCOUNTER → 2024-09-24 | Outpatient (CLI) | payer MEDICARE ==
[2024-09-24 16:53] LABS: Chol/HDL Ratio 2.13 Ratio; LDL Cholesterol,Calculated 26.4 mg/dL (0.0-131.0); VLDL Calculation 14.92 mg/dL (5.00-40.00)
== END | disposition home or self-care (01) ==
LOC: LABWHC1 08:23
PROVIDERS: ATTEND Psychiatry & Neurology Neurology
DX: Z86.73 Personal history of transient ischemic attack (TIA), and cerebral infarction without residual deficits (principal); Z79.899 Other long term (current) drug therapy
CPT/HCPCS: 36415; 80061; 82607; 83036